=== PATIENT | female | born 1990 | race Caucasian/White ===

== ENCOUNTER 2023-08-31 18:38 | Inpatient (IN) ==
--- NOTE | 2023-08-31 19:08 | Emergency Department Note ---
Impression & Plan Nausea & vomiting, Weakness, Ovarian cystic mass, Anemia, Upper respiratory infection, viral, Metabolic acidosis ED Provider Note ED Provider Note NAME: CODI EVANS AGE:32 SEX: Female : 1990 ARRIVES VIA: private vehicle INFORMANT: Patient ED PROVIDER(s): Malu Lundy DO CHIEF COMPLAINT: Nausea and vomiting, weakness, fatigue HPI: This is a 32-year-old female presents emergency department due to concern for nausea and vomiting, weakness, and fatigue which have been evolving over the last 2 months. Patient states that she initially had nausea and vomiting she thought it was a "stomach flu" that was similar to what other family members that had. She states at that time she does not recall having diarrhea, fevers or chills. She states after the other family members were already improved, she found herself still having intermittent vomiting, decreased appetite, and eventually weight loss, weakness, and increased fatigue. She denies any recent new sick contacts or travel, no recent medication changes. She denies any blood in the emesis. She denies any history of stomach or intestinal problems. PAST MEDICAL HISTORY:See Below PAST SURGICAL HISTORY:See Below FAMILY HISTORY:See Below SOCIAL HISTORY:See Below HOME MEDICATIONS:See Below ALLERGIES:See Below VITALS:See Below PHYSICAL EXAMINATION: GENERAL: alert, well appearing, well nourished, no distress, non-toxic EYE EXAM: normal conjunctiva, PERRL and EOM's grossly intact OROPHARYNX: no exudate, no erythema, lips, buccal mucosa, and tongue normal and mucous membranes are moist NECK: supple, no nuchal rigidity, no adenopathy, non-tender LUNGS: Clear to auscultation. Normal chest wall mechanics, no w/r/r HEART: no murmurs, S1 normal and S2 normal ABDOMEN: abdomen soft, non-tender, normo-active bowel sounds, no masses, no rebound or guarding. BACK: Back is symmetrical on inspection and there is no deformity, no midline tenderness, no CVA tenderness. SKIN: no rashes, petechiae, orbruising UPPER EXTREMITIES: upper extremities are grossly normal. FROM, nml pulses b/l. LOWER EXTREMITIES: No pitting edema. FROM, nml pulses b/l. NEURO EXAM: Normal sensorium, cranial nerves II-XII grossly intact, normal speech, no facial droop,nogross weakness of arms, no gross weakness of legs. Gross sensation intact. No ataxia. Vital Signs: reviewed and remarkable Differential Diagnosis: dehydration, stroke, anemia, hypoglycemia, hyponatremia, hypernatremia, urinary tract infection, pneumonia, bronchitis, sepsis, gastroenteritis, DKA, electrolyte abnormalities, ARSEN, gastroparesis as well as others were considered MEDICAL DECISION MAKING: This is a 32-year-old female presents to the 2 months of worsening nausea and vomiting, weakness, and fatigue. Patient tachycardic however vital signs otherwise stable. She did appear clinically dehydrated on bedside exam. Labs drawn and sent, IV established, EKG performed at bedside interpreted by me and based on discussion of persistent GI symptoms she was sent for CT of the abdomen and pelvis. CT revealed large pelvic cystic mass likely ovarian in nature with both cystic and solid components. The patient does have a history of PCOS she states she had never had a prior pelvic ultrasound for evaluation of these. Patient's lab revealed significant leukocytosis of 23 as well as new anemia. Patient denies any vaginal bleeding, GI bleeding, or hemoptysis. Patient noted to have anion gap although no significant hyperglycemia. No evidence of ARSEN. After noting significant leukocytosis, lactic acid, procalcitonin, blood cultures were added. Patient denies any recent illness or fevers. Patient had no abdominal pain on exam. Patient had been started on normal saline at maintenance rate due to concern for occult dehydration. I suspect her dehydration could be contributing to her metabolic acidosis, however I also have concern for euglycemic DKA given her use of Jardiance. I did discuss the CT findings with [facility] [employer] SUPERVISOR on-call who stated there is no need for emergent intervention and that ultimately she would need referred to [facility]. I was called by radiology additionally who recommended additional imaging of the chest as they were concerned about possible PE noted on the abdominal CT. This was also [facility] of the chest. Patient's nasal swab was also positive for enterovirus/rhinovirus. Consultation(s): 2126: Discussed with Dr. Suggs, technical applications scientist. Will need referral ultimately to medical cost consultant onc for surgery. 2131: [facility] Treatment Provided: See below Diagnostics Interpreted By Me: -ECG: Sinus tachycardia at 147, normal axis, normal intervals, nonspecific ST/T wave changes -Cardiac Monitoring: An order was placed for continuous cardiac monitoring. The monitor shows a rate of 144 with sinus tachycardia rhythm. -Laboratory studies: As stated above and show below. -Imaging studies: [] Triage Nursing Note Reviewed Prior/Outside Records Reviewed -prior outpatient labs including hemoglobin A1c reviewed Past Med/Surg History Social History Smoking Status: Never smoker Hx Alcohol Use: No Hx Substance Use: No Preferred Language: Maltese Silk Screen Etcher Required: No Beliefs That Will Affect Care: None Current Living Situation: Alone Other Information That Helps Us Care for You: No Feels Safe at Home: Yes Safety Concerns: Feels Safe At This Time Assistive Devices: Glasses Allergies Allergies Allergy/AdvReac Type Severity Reaction Status Date / Time exenatide [From [facility]] Allergy Rash Verified 08/31/23 20:41 Home Meds Home Medications Medication Instructions Recorded Confirmed empagliflozin 25 mg tablet 25 mg PO DAILY 05/28/20 08/31/23 (Jardiance) losartan 25 mg tablet 25 mg PO DAILY 05/28/20 08/31/23 metformin 1,000 mg tablet 1,000 mg PO BID 05/28/20 08/31/23 escitalopram oxalate 10 mg tablet 10 mg PO QAM 08/31/23 08/31/23 Results & Data (ED) Vital Signs Vital Signs - 24 hr 08/31/23 18:42 08/31/23 19:01 08/31/23 19:05 Temperature 36.6 C Temperature Source Oral Pulse Rate 144 H 136 H Pulse Rhythm Regular Pulse Strength Normal Respiratory Rate 18 Respiratory Effort / Characteristics Non-Labored Respiratory Depth Normal Respiratory Pattern Regular Blood Pressure 136/86 Blood Pressure Mean 102 Blood Pressure Position Sitting Pulse Oximetry 98 Oxygen Delivery Method Room Air Room Air Oxygen Flow Rate 99 Sepsis Recent Fever Within 48 Hours No Sepsis New/Unexplained Change in Mental Status No Sepsis Action Taken by Nursing No Action Required 08/31/23 19:25 08/31/23 19:30 08/31/23 20:54 Temperature Temperature Source Pulse Rate 131 H 131 H 124 H Pulse Rhythm Pulse Strength Respiratory Rate 20 18 18 Respiratory Effort / Characteristics Respiratory Depth Respiratory Pattern Blood Pressure 122/82 127/85 118/82 Blood Pressure Mean 95 99 94 Blood Pressure Position Pulse Oximetry 98 98 99 Oxygen Delivery Method Oxygen Flow Rate Sepsis Recent Fever Within 48 Hours Sepsis New/Unexplained Change in Mental Status Sepsis Action Taken by Nursing 08/31/23 21:00 08/31/23 21:30 Temperature Temperature Source Pulse Rate 130 H 126 H Pulse Rhythm Pulse Strength Respiratory Rate 22 20 Respiratory Effort / Characteristics Respiratory Depth Respiratory Pattern Blood Pressure 142/93 H 135/87 Blood Pressure Mean 109 103 Blood Pressure Position Pulse Oximetry 97 98 Oxygen Delivery Method Oxygen Flow Rate Sepsis Recent Fever Within 48 Hours Sepsis New/Unexplained Change in Mental Status Sepsis Action Taken by Nursing Laboratory Data 08/31/23 19:01 09/01/23 00:45 Lab Results 08/31/23 08/31/23 08/31/23 Range/Units 19:01 : 20:25 WBC 23.73 H (4.8-10.8) K/ul RBC 3.99 L (4.20-5.40) M/uL Hgb 7.8 L (12.0-16.0) g/dl Hct 29.1 L (37.0-47.0) % MCV 72.9 L (80.0-100.0) fL MCH 19.5 L (25.0-34.0) pg MCHC 26.8 L (32.0-36.0) g/dL RDW Std Deviation 52.4 H (36.4-46.3) fL RDW Coeff of Maryuri 20.7 H (11.5-14.5) % Plt Count 735 H (130-400) K/uL MPV 8.4 L (9.4-12.4) fL Immature Gran % (Auto) 2.1 % Neut % (Auto) 81.0 % Lymph % (Auto) 11.0 % [place] % (Auto) 5.4 % Eos % (Auto) 0.2 % Baso % (Auto) 0.3 % Neut # (Auto) 19.22 H (1.40-6.50) K/uL Lymph # (Auto) 2.62 (1.20-3.40) K/uL [place] # (Auto) 1.28 H (0.11-0.59) K/uL Eos # (Auto) 0.04 (0.00-0.50) K/uL Baso # (Auto) 0.08 (0.00-0.20) K/uL Immature Gran # (Auto) 0.49 H (0.01-0.20) K/uL Polychromasia 1+ Hypochromasia Present Anisocytosis Present PT 11.9 (9.0-12.0) Seconds INR 1.1 (0.9-1.1) APTT 26 (21-31) Seconds PTT Ratio 0.9 Sodium 130 L (136-145) mmol/L Potassium TNP 3.7 Chloride 92 L (98-107) mmol/L Carbon Dioxide 21 (21-32) mmol/L Anion Gap 17 H (3-11) BUN 14 (6-23) mg/dl Creatinine 0.55 L (0.6-1.2) mg/dl Est Cr Clr Drug Dosing 163.6 ml/min Est GFR ( Amer) 144.9 ml/min Est GFR (Non-Af Amer) 125.0 ml/min BUN/Creatinine Ratio 25.5 H (10-20) Glucose 168 H (70-99(Fasting)) mg/dl Lactate 1.6 (0.4-2.0) mmol/L Calcium 9.3 (8.6-10.3) mg/dl Magnesium 1.9 (1.7-2.4) mg/dl Total Bilirubin 0.5 (0.2-1.0) mg/dl AST TNP 11 L ALT 6 L (7-52) U/L Alkaline Phosphatase 117 H (34-104) U/L Troponin I High Sens 11.5 (0-14) pg/ml Total Protein 8.4 H (6.0-8.3) gm/dl Albumin 3.5 (3.4-5.0) gm/dl Globulin 4.9 H (2.5-4.0) gm/dl Albumin/Globulin Ratio 0.7 L (0.9-2) Lipase 15 (11-82) U/L Procalcitonin 0.41 (0-0.5) ng/ml TSH 1.394 (0.300-4.500) uIu/ml HCG, Qual Negative (Negative) Blood Type Blood Type Recheck A Positive Antibody Screen 08/31/23 Range/Units 21:45 WBC (4.8-10.8) K/ul RBC (4.20-5.40) M/uL Hgb (12.0-16.0) g/dl Hct (37.0-47.0) % MCV (80.0-100.0) fL MCH (25.0-34.0) pg MCHC (32.0-36.0) g/dL RDW Std Deviation (36.4-46.3) fL RDW Coeff of Maryuri (11.5-14.5) % Plt Count (130-400) K/uL MPV (9.4-12.4) fL Immature Gran % (Auto) % Neut % (Auto) % Lymph % (Auto) % [place] % (Auto) % Eos % (Auto) % Baso % (Auto) % Neut # (Auto) (1.40-6.50) K/uL Lymph # (Auto) (1.20-3.40) K/uL [place] # (Auto) (0.11-0.59) K/uL Eos # (Auto) (0.00-0.50) K/uL Baso # (Auto) (0.00-0.20) K/uL Immature Gran # (Auto) (0.01-0.20) K/uL Polychromasia Hypochromasia Anisocytosis PT (9.0-12.0) Seconds INR (0.9-1.1) APTT (21-31) Seconds PTT Ratio Sodium (136-145) mmol/L Potassium Chloride (98-107) mmol/L Carbon Dioxide (21-32) mmol/L Anion Gap (3-11) BUN (6-23) mg/dl Creatinine (0.6-1.2) mg/dl Est Cr Clr Drug Dosing ml/min Est GFR ( Amer) ml/min Est GFR (Non-Af Amer) ml/min BUN/Creatinine Ratio (10-20) Glucose (70-99(Fasting)) mg/dl Lactate (0.4-2.0) mmol/L Calcium (8.6-10.3) mg/dl Magnesium (1.7-2.4) mg/dl Total Bilirubin (0.2-1.0) mg/dl AST ALT (7-52) U/L Alkaline Phosphatase (34-104) U/L Troponin I High Sens (0-14) pg/ml Total Protein (6.0-8.3) gm/dl Albumin (3.4-5.0) gm/dl Globulin (2.5-4.0) gm/dl Albumin/Globulin Ratio (0.9-2) Lipase (11-82) U/L Procalcitonin (0-0.5) ng/ml TSH (0.300-4.500) uIu/ml HCG, Qual (Negative) Blood Type A Positive Blood Type Recheck Antibody Screen NEGATIVE Administered Medications Heparin Sodium/Dextrose (Heparin Sodium/Dextrose) 25,000 units in 500 mls @ 25 mls/hr IV .Q20H DEMAR; Protocol Stop: 10/01/23 00:29 Last Admin: 09/01/23 00:52 Dose: 1,250 units/hr, 25 mls/hr Documented By: LUPE Co-signed By: MARYA Sodium Chloride (Nss) 1,000 mls @ 999 mls/hr IV .Q1H1M STA Stop: 09/01/23 03:06 Last Admin: 09/01/23 02:08 Dose: 999 mls/hr Documented By: MARTHA Discontinued Medications Heparin Sodium (Porcine) (Heparin Sod (Porcine) 1000 Unit/Ml) 6,000 units IV NOW ONE Stop: 09/01/23 00:31 Last Admin: 09/01/23 00:55 Dose: 6,000 units Documented By: LUPE Co-signed By: MARYA Heparin Sodium/Dextrose (Heparin Iv Adult Wt-Based Standard W/ Initial Bolus Protocol) 1 each IV NOW STA; Protocol Stop: 08/31/23 23:20 Last Admin: 09/01/23 00:55 Dose: 1 each Documented By: LUPE Sodium Chloride (Nss) 1,000 mls @ 125 mls/hr IV .Q8H DEMAR Stop: 09/30/23 19:14 Last Infusion: 09/01/23 01:48 Dose: Infused Documented By: Admin: 08/31/23 19:25 Dose: 125 mls/hr Documented By: LUPE Dextrose/Sodium Chloride (D5w And Nss) 1,000 mls @ 200 mls/hr IV .Q5H DEMAR Stop: 10/01/23 01:44 Last Infusion: 09/01/23 02:04 Dose: Infused Documented By: Admin: 09/01/23 01:57 Dose: 200 mls/hr Documented By: MARTHA Ioversol (Optiray 320 500ml) 90 ml IV ONCE ONE Stop: 08/31/23 19:54 Last Admin: 08/31/23 19:53 Dose: 90 ml Documented By: ALEJANDRO Ioversol (Optiray 320 125ml) 117 ml IV ONCE ONE Stop: 08/31/23 22:31 Last Admin: 08/31/23 22:31 Dose: 117 ml Documented By: ALEJANDRO Imaging Data Radiologist's Impression: Abdomen/Pelvis CT 08/31/23 19:03 Exam(s): CT ABDOMEN + PELVIS With Contrast IV Amt: 90 ml optiray 320 EXAM: CT Abdomen and Pelvis With Intravenous Contrast CLINICAL HISTORY: n/v, weight loss, abd distention. TECHNIQUE: Axial computed tomography images of the abdomen and pelvis with intravenous contrast. CTDI is 28.22 mGy and DLP is 1419.52 mGy-cm. Automated exposure control was utilized for the study. A dose lowering technique was utilized adhering to the principles of ALARA. CONTRAST: Patient received 90 ml optiray 320 of IV contrast COMPARISON: No relevant prior studies available. FINDINGS: Lung bases: Unremarkable. No mass. No consolidation. ABDOMEN: Liver: Unremarkable. No mass. Gallbladder and bile ducts: Unremarkable. No calcified stones. No ductal dilation. Pancreas: Unremarkable. No mass. No ductal dilation. Spleen: Unremarkable. No splenomegaly. Adrenals: Unremarkable. No mass. Kidneys and ureters: Unremarkable. No solid mass. No hydronephrosis. Stomach and bowel: No evidence for bowel obstruction. There is marked displacement of the bowel from the abnormal space-occupying mass. No asymmetric bowel mucosal abnormality identified. PELVIS: Appendix: The appendix is not clearly delineated. No secondary findings identified. Bladder: Unremarkable. No mass. Reproductive: Uterus is normal in size and appears to be distinct from the pelvic mass. There is tissue in the right lateral pelvis which may represent the right adnexa/ovary. The tissue abuts the mass but appears to be somewhat distinct from the mass. ABDOMEN and PELVIS: Intraperitoneal space: There is a complex probably cystic mass with eccentric solid components filling and distending the abdomen and pelvis, measuring 20.2 x 28 x 28.4 cm (volume 8.42 L). Trace free fluid in the pelvis without loculation. No free air. Bones/joints: No acute fracture. No dislocation. Soft tissues: Unremarkable. Vasculature: Unremarkable. No abdominal aortic aneurysm. Lymph nodes: Unremarkable. No enlarged lymph nodes. IMPRESSION: There is a complex probably cystic mass with eccentric solid components filling and distending the abdomen and pelvis, measuring 20.2 x 28 x 28.4 cm (volume 8.42 L). Trace surrounding free fluid in the pelvis. 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 Electronically signed by: Amadeo Cheema MD 08/31/23 20:47 PM Chest CTA 08/31/23 22:07 CT ANGIOGRAM OF THE CHEST CLINICAL HISTORY: Ovarian mass. Possible left lower lobe pulmonary embolus. COMPARISON STUDY: Abdominal CT performed the same date 08/31/2023. TECHNIQUE: Following the IV administration of 117 cc of Optiray 320, CT angiogram of the chest was performed from the upper abdomen to the thoracic inlet utilizing the pulmonary embolus protocol. Images are reviewed in the axial, sagittal, and coronal planes. 3-D MIPS images are created and assessed. IV contrast was administered without complication. A dose lowering technique was utilized adhering to the principles of ALARA. CT DOSE: 849.54 mGy.cm FINDINGS: Thyroid: Imaged portions of the thyroid gland are normal in size and attenuation. Thoracic aorta: The thoracic aorta is normal in caliber and demonstrates bovine variant arch anatomy. No dissection is seen. Pulmonary vasculature: The pulmonary trunk is normal in caliber. There are segmental and subsegmental pulmonary embolus within branches of the left lower lobe pulmonary artery. The remaining pulmonary vessels appear clear. Heart: The heart is normal in size and without pericardial effusion. Lungs and pleural spaces: Evaluation of the lung parenchyma is degraded by motion artifact. There is trace right pleural effusion and dependent atelectasis. No airspace consolidation is seen typical for pneumonia. The trachea and central airways are clear. Mediastinum: There is no mediastinal lymphadenopathy. Denae: Clear. Axillae: There is no axillary lymphadenopathy. Upper abdomen: A large solid and cystic mass lesion is partially visualized in the upper abdomen below the diaphragm. Excreted IV contrast is seen within the renal collecting systems. Skeletal structures: No lytic or blastic bony lesions are seen. IMPRESSION: 1. The CT angiogram confirms pulmonary embolus within segmental and subsegmental branches of the left lower lobe pulmonary artery. 2. Trace right pleural effusion. 3. There is no airspace consolidation typical for pneumonia. 4. There is no evidence of intrathoracic metastatic disease. 5. A large solid and cystic ovarian mass lesion is partially visualized in the upper abdomen. An ovarian neoplasm remains the diagnosis of exclusion. 6. Additional findings as above. ACT 112: Negative or not required by law. Electronically signed by: Damien Rolle M.D. 08/31/2023 10:45 PM Discharge Plan Visit Data Chief Complaint: Shortness of Breath/Dyspnea Stated Complaint: VOMIT, SOB, DIZZY ED Provider: Malu Lundy Discharge Problem: Nausea & vomiting, Weakness, Ovarian cystic mass, Anemia, Upper respiratory infection, viral, Metabolic acidosis Patient Disposition: Admitted As Inpatient Discharge Instructions Interventions: ED Discharge Assessment Last Done: 09/01/23 00:12
[2023-08-31] MEDS ORDERED: SODIUM CHLORIDE 0.9% 1,000 ML IV SCH (19:15)
[2023-08-31 19:37] LABS: Alanine Aminotransferase 6 U/L (7-52); Albumin Globulin Ratio 0.7 (0.9-2); Albumin Level 3.5 gm/dl (3.4-5.0); Alkaline Phosphatase 117 U/L (34-104); Anion Gap 17 (3-11); BUN Creatinine Ratio 25.5 (10-20); Bilirubin,Total 0.5 mg/dl (0.2-1.0); Blood Urea Nitrogen 14 mg/dl (6-23); Calcium 9.3 mg/dl (8.6-10.3); Carbon Dioxide 21 mmol/L (21-32); Chloride 92 mmol/L (98-107); Creatinine Clr Calc Pharmacy 163.6 ml/min; Est GFR (African American) 144.9 ml/min; Globulin 4.9 gm/dl (2.5-4.0); Glucose 168 mg/dl (70-99(Fasting)); Lipase 15 U/L (11-82); Magnesium 1.9 mg/dl (1.7-2.4); Sodium 130 mmol/L (136-145); Total Protein 8.4 gm/dl (6.0-8.3)
[2023-08-31 19:38] LABS: Hematocrit (blood only) 29.1 % (37.0-47.0); Hemoglobin 7.8 g/dl (12.0-16.0); Mean Corpuscular Hemoglobin 19.5 pg (25.0-34.0); Mean Corpuscular Hgb Conc 26.8 g/dL (32.0-36.0); Mean Corpuscular Volume 72.9 fL (80.0-100.0); Mean Platelet Volume 8.4 fL (9.4-12.4); Platelet Count 735 K/uL (130-400); RDW Coefficient of Variation 20.7 % (11.5-14.5); RDW Standard Deviation 52.4 fL (36.4-46.3); Red Blood Count 3.99 M/uL (4.20-5.40); White Blood Count 23.73 K/ul (4.8-10.8)
[2023-08-31 19:39] LABS: Anisocytosis Present; Basophils # (auto) 0.08 K/uL (0.00-0.20); Basophils % (auto) 0.3 %; Eosinophils # (auto) 0.04 K/uL (0.00-0.50); Eosinophils % (auto) 0.2 %; Hypochromasia Present; Immature Granulocytes # (auto) 0.49 K/uL (0.01-0.20); Immature Granulocytes % (auto) 2.1 %; Lymphocytes # (auto) 2.62 K/uL (1.20-3.40); Monocytes # (auto) 1.28 K/uL (0.11-0.59); Monocytes % (auto) 5.4 %; Neutrophils # (auto) 19.22 K/uL (1.40-6.50); Polychromasia 1+
[2023-08-31 19:40] LABS: INR 1.1 (0.9-1.1); Prothrombin Time 11.9 Seconds (9.0-12.0); Troponin I High Sensitivity 11.5 pg/ml (0-14)
[2023-08-31 19:49] LABS: Thyroid Stimulating Hormone 1.394 uIu/ml (0.300-4.500)
[2023-08-31] MEDS ORDERED: OPTIRAY 320 500ml IV ONE (19:53)
--- NOTE | 2023-08-31 20:48 | CT Scan Report ---
Exam(s): CT ABDOMEN + PELVIS With Contrast IV Amt: 90 ml optiray 320 EXAM: CT Abdomen and Pelvis With Intravenous Contrast CLINICAL HISTORY: n/v, weight loss, abd distention. TECHNIQUE: Axial computed tomography images of the abdomen and pelvis with intravenous contrast. CTDI is 28.22 mGy and DLP is 1419.52 mGy-cm. Automated exposure control was utilized for the study. A dose lowering technique was utilized adhering to the principles of ALARA. CONTRAST: Patient received 90 ml optiray 320 of IV contrast COMPARISON: No relevant prior studies available. FINDINGS: Lung bases: Unremarkable. No mass. No consolidation. ABDOMEN: Liver: Unremarkable. No mass. Gallbladder and bile ducts: Unremarkable. No calcified stones. No ductal dilation. Pancreas: Unremarkable. No mass. No ductal dilation. Spleen: Unremarkable. No splenomegaly. Adrenals: Unremarkable. No mass. Kidneys and ureters: Unremarkable. No solid mass. No hydronephrosis. Stomach and bowel: No evidence for bowel obstruction. There is marked displacement of the bowel from the abnormal space-occupying mass. No asymmetric bowel mucosal abnormality identified. PELVIS: Appendix: The appendix is not clearly delineated. No secondary findings identified. Bladder: Unremarkable. No mass. Reproductive: Uterus is normal in size and appears to be distinct from the pelvic mass. There is tissue in the right lateral pelvis which may represent the right adnexa/ovary. The tissue abuts the mass but appears to be somewhat distinct from the mass. ABDOMEN and PELVIS: Intraperitoneal space: There is a complex probably cystic mass with eccentric solid components filling and distending the abdomen and pelvis, measuring 20.2 x 28 x 28.4 cm (volume 8.42 L). Trace free fluid in the pelvis without loculation. No free air. Bones/joints: No acute fracture. No dislocation. Soft tissues: Unremarkable. Vasculature: Unremarkable. No abdominal aortic aneurysm. Lymph nodes: Unremarkable. No enlarged lymph nodes. IMPRESSION: There is a complex probably cystic mass with eccentric solid components filling and distending the abdomen and pelvis, measuring 20.2 x 28 x 28.4 cm (volume 8.42 L). Trace surrounding free fluid in the pelvis. 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 Electronically signed by: Amadeo Cheema MD 08/31/23 20:47 PM
[2023-08-31 20:52] LABS: Potassium 3.7 mmol/L (3.5-5.1)
[2023-08-31 21:10] LABS: Adenovirus PCR Not Detected (NotDetected); Bordetella parapertussis PCR Not Detected (NotDetected); Bordetella pertussis PCR Not Detected (NotDetected); Chlamydia pneumoniae PCR Not Detected (NotDetected); Coronavirus 229E PCR Not Detected (NotDetected); Coronavirus CoV-2 (COVID19)PCR Not Detected (NotDetected); Coronavirus HKU1 PCR Not Detected (NotDetected); Coronavirus NL63 PCR Not Detected (NotDetected); Coronavirus OC43PCR Not Detected (NotDetected); Human Metapneumovirus PCR Not Detected (NotDetected); Influenza A PCR Not Detected (NotDetected); Influenza B PCR Not Detected (NotDetected); Mycoplasma pneumoniae PCR Not Detected (NotDetected); Parainfluenza Virus 1 PCR Not Detected (NotDetected); Parainfluenza Virus 2 PCR Not Detected (NotDetected); Parainfluenza Virus 3 PCR Not Detected (NotDetected); Parainfluenza Virus 4 PCR Not Detected (NotDetected); Respiratory Syncytial VirusPCR Not Detected (NotDetected)
[2023-08-31 21:12] LABS: Rhinovirus/Enterovirus PCR DETECTED (NotDetected)
[2023-08-31 21:46] LABS: Pregnancy Test, Serum Negative (Negative)
[2023-08-31] MEDS ORDERED: OPTIRAY 320 125ml IV ONE (22:30)
--- NOTE | 2023-08-31 22:43 | History & Physical Report ---
Date of Service August 31, 2023 Assessment & Plan (1) Weakness: Plan: 32-year-old female with past med significant for type 2 diabetes, polycystic ovaries, morbid obesity comes because of ongoing nausea and vomiting, weakness and fatigue for last 2 months. She vomits little bit about every other day .She was getting progressively short of breath. Fatigue and weak. Poor appetite. Last about 40 pounds in last 2 months. Denies any fevers. On and off pal pitations. No chest pain. And found to have tachycardia, leukocytosis, anemia and respiratory bio fire came back positive for enterorhinovirus and CT scan showing large oral mass. Weakness Enterorhinovirus Anemia Large ovarian mass Tachycardia Ct chest showing PE started on iv heparin ordered echo and lower extremity doppler. Entero/rhinovirus Supportive care Droplet precautions Seems asymptomatic from the virus infection Anemia Hemoglobin 7.8 No obvious signs of bleeding Will follow stool for Hemoccult Iron studies and vitamin B12 folate levels Follow labs closely while on iv heparin Blood consent obtained Leukocytosis We will follow UA and CT chest Procalcitonin negative We will follow labs will follow cultures follow mrsa screen. empiric zosyn Large ovarian mass CT abdominal /pelvis:There is a complex probably cystic mass with eccentric solid components filling and distending the abdomen and pelvis, measuring 20.2 x 28 x 28.4 cm (volume 8.42 L). Trace surrounding free fluid in the pelvis. 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 Will consult [facility] Diabetes possible euglycemic DKA as patient on Jardiance and having poor oral intake having high anion gap not much improved with fluids started on insulin drip with fluids d5ns@200ml/hr close monitor labs glycemic pharmacy consulted. History of polycystic ovaries Hypertension On losartan will monitor. Morbid obesity DVT prophylaxis iv heparin Disposition Telemetry floor Full code History of Present Illness Chief Complaint: Shortness of breath, fatigue Primary Care Provider: Clemencia Diana DO 32-year-old female with past med significant for type 2 diabetes, polycystic ovaries, morbid obesity comes because of ongoing nausea and vomiting, weakness and fatigue for last 2 months. She vomits little bit about every other day .She was getting progressively short of breath. Fatigue and weak. Poor appetite. Last about 40 pounds in last 2 months. Denies any fevers. On and off palpitations. No chest pain. No headache. Currently denies any runny nose or sore throat. Has cough for last 4 months. On and off bilateral flank pains. Denies hematuria or blood in the stools. Denies any heavy menses. She also feeling weak in the legs. Not able to ambulate much. Past medical history. As mentioned above Past surgical history. None Social history. Currently living with her sister and family. No smoking. No alcohol use. No drug use. Family history. Mother had hypertension. COPD, obesity. Father had glaucoma, hypertension. Sister has obesity, hypertension. Maternal grandfather had polycythemia. Paternal grandfather had cancer. Paternal grandmother had lung cancer. Allergies Allergy/AdvReac Type Severity Reaction Status Date / Time exenatide [From MapHazardlyAcsis] Allergy Rash Verified 08/31/23 20:41 Home Medications Medication Instructions Recorded Confirmed Type empagliflozin 25 mg tablet 25 mg PO DAILY 05/28/20 08/31/23 History (Jardiance) losartan 25 mg tablet 25 mg PO DAILY 05/28/20 08/31/23 History metformin 1,000 mg tablet 1,000 mg PO BID 05/28/20 08/31/23 History escitalopram oxalate 10 mg tablet 10 mg PO QAM 08/31/23 08/31/23 History Past Med/Surg History Social History Smoking Status: Never smoker Hx Alcohol Use: No Hx Substance Use: No Preferred Language: [place] Clinical Psychiatrist Required: No Beliefs That Will Affect Care: None Current Living Situation: Alone Other Information That Helps Us Care for You: No Feels Safe at Home: Yes Safety Concerns: Feels Safe At This Time Assistive Devices: Glasses Review of Systems Review of Systems: All systems reviewed & are unremarkable except as noted in HPI & below Physical Exam Physical Exam: General-Not in distress. Head- atraumatic Eyes- PERRL. ENT- oropharynx clear Neck- supple, no JVD. Lungs- clear to auscultation no wheezing or crackles. Heart- regular rhythm; no murmur, no gallop. Abdomen- normal bowel sounds, soft, nontender, no distension. Extremities- no pretibial edema, no erythema seen. Neuro- alert, oriented x 3; PERRL,; no facial palsy; no dysarthria; obeys commands. Skin- warm & dry Results & Data Results & Data Vital Signs (Past 12 Hours) Vital Signs Temp Pulse Resp BP Pulse Ox O2 Del Method O2 Flow Rate 08/31/23 20:54 124 H 18 118/82 99 08/31/23 19:30 131 H 18 127/85 98 08/31/23 19:25 131 H 20 122/82 98 08/31/23 19:05 Room Air 99 08/31/23 19:01 136 H 08/31/23 18:42 36.6 C 144 H 18 136/86 98 Room Air Diagnostic Findings Laboratory Results WBC 23.73 K/ul (4.8-10.8) H 08/31/23 19:01 RBC 3.99 M/uL (4.20-5.40) L 08/31/23 19:01 Hgb 7.8 g/dl (12.0-16.0) L 08/31/23 19:01 Hct 29.1 % (37.0-47.0) L 08/31/23 19:01 MCV 72.9 fL (80.0-100.0) L 08/31/23 19:01 MCH 19.5 pg (25.0-34.0) L 08/31/23 19:01 MCHC 26.8 g/dL (32.0-36.0) L 08/31/23 19:01 RDW Std Deviation 52.4 fL (36.4-46.3) H 08/31/23 19:01 RDW Coeff of Maryuri 20.7 % (11.5-14.5) H 08/31/23 19:01 Plt Count 735 K/uL (130-400) H 08/31/23 19:01 MPV 8.4 fL (9.4-12.4) L 08/31/23 19:01 Immature Gran % (Auto) 2.1 % 08/31/23 19:01 Neut % (Auto) 81.0 % 08/31/23 19:01 Lymph % (Auto) 11.0 % 08/31/23 19:01 [place] % (Auto) 5.4 % 08/31/23 19:01 Eos % (Auto) 0.2 % 08/31/23 19:01 Baso % (Auto) 0.3 % 08/31/23 19:01 Neut # (Auto) 19.22 K/uL (1.40-6.50) H 08/31/23 19:01 Lymph # (Auto) 2.62 K/uL (1.20-3.40) 08/31/23 19:01 [place] # (Auto) 1.28 K/uL (0.11-0.59) H 08/31/23 19:01 Eos # (Auto) 0.04 K/uL (0.00-0.50) 08/31/23 19:01 Baso # (Auto) 0.08 K/uL (0.00-0.20) 08/31/23 19:01 Immature Gran # (Auto) 0.49 K/uL (0.01-0.20) H 08/31/23 19:01 Polychromasia 1+ 08/31/23 19:01 Hypochromasia Present 08/31/23 19:01 Anisocytosis Present 08/31/23 19:01 PT 11.9 Seconds (9.0-12.0) 08/31/23 19:01 INR 1.1 (0.9-1.1) 08/31/23 19:01 Sodium 130 mmol/L (136-145) L 08/31/23 19:01 Potassium 3.7 mmol/L (3.5-5.1) 08/31/23 20:23 Chloride 92 mmol/L (98-107) L 08/31/23 19:01 Carbon Dioxide 21 mmol/L (21-32) 08/31/23 19:01 Anion Gap 17 (3-11) H 08/31/23 19:01 BUN 14 mg/dl (6-23) 08/31/23 19:01 Creatinine 0.55 mg/dl (0.6-1.2) L 08/31/23 19:01 Est Cr Clr Drug Dosing 163.6 ml/min 08/31/23 19:01 Est GFR ( Amer) 144.9 ml/min 08/31/23 19:01 Est GFR (Non-Af Amer) 125.0 ml/min 08/31/23 19:01 BUN/Creatinine Ratio 25.5 (10-20) H 08/31/23 19:01 Glucose 168 mg/dl (70-99(Fasting)) H 08/31/23 19:01 Lactate 1.6 mmol/L (0.4-2.0) 08/31/23 20:23 Calcium 9.3 mg/dl (8.6-10.3) 08/31/23 19: Magnesium 1.9 mg/dl (1.7-2.4) 08/31/23 19: Total Bilirubin 0.5 mg/dl (0.2-1.0) 08/31/23 19:01 AST 11 U/L (13-39) L 08/31/23 20:23 ALT 6 U/L (7-52) L 08/31/23 19:01 Alkaline Phosphatase 117 U/L (34-104) H 08/31/23 19:01 Troponin I High Sens 11.5 pg/ml (0-14) 08/31/23 19: Total Protein 8.4 gm/dl (6.0-8.3) H 08/31/23 19: Albumin 3.5 gm/dl (3.4-5.0) 08/31/23 19: Globulin 4.9 gm/dl (2.5-4.0) H 08/31/23 19: Albumin/Globulin Ratio 0.7 (0.9-2) L 08/31/23 19: Lipase 15 U/L (11-82) 08/31/23 19:01 Procalcitonin 0.41 ng/ml (0-0.5) 08/31/23 20: TSH 1.394 uIu/ml (0.300-4.500) 08/31/23 19: HCG, Qual Negative (Negative) 08/31/23 20:23 Adenovirus (PCR) Not Detected (NotDetected) 08/31/23 Unknown B. pertussis DNA (PCR) Not Detected (NotDetected) 08/31/23 Unknown B.parapertussis DNA PCR Not Detected (NotDetected) 08/31/23 Unknown C. pneumoniae DNA (PCR) Not Detected (NotDetected) 08/31/23 Unknown Coronavirus OC43 (PCR) Not Detected (NotDetected) 08/31/23 Unknown Coronavirus HKU1 (PCR) Not Detected (NotDetected) 08/31/23 Unknown Coronavirus 229E (PCR) Not Detected (NotDetected) 08/31/23 Unknown SARS-CoV-2 (PCR) Not Detected (NotDetected) 08/31/23 Unknown Coronavirus NL63 (PCR) Not Detected (NotDetected) 08/31/23 Unknown Human Metapneumovir PCR Not Detected (NotDetected) 08/31/23 Unknown Influenza Type A (PCR) Not Detected (NotDetected) 08/31/23 Unknown Influenza Type B (PCR) Not Detected (NotDetected) 08/31/23 Unknown M. pneumoniae (PCR) Not Detected (NotDetected) 08/31/23 Unknown Parainfluenza 1 (PCR) Not Detected (NotDetected) 08/31/23 Unknown Parainfluenza 2 (PCR) Not Detected (NotDetected) 08/31/23 Unknown Parainfluenza 3 (PCR) Not Detected (NotDetected) 08/31/23 Unknown Parainfluenza 4 (PCR) Not Detected (NotDetected) 08/31/23 Unknown RSV (PCR) Not Detected (NotDetected) 08/31/23 Unknown Entero/Rhino (PCR) DETECTED (NotDetected) A* 08/31/23 Unknown Blood Type A Positive 08/31/23 21:45 Blood Type Recheck A Positive 08/31/23 20:25 Antibody Screen NEGATIVE 08/31/23 21:45 Impressions Abdomen/Pelvis CT 08/31/23 19:03 Exam(s): CT ABDOMEN + PELVIS With Contrast IV Amt: 90 ml optiray 320 EXAM: CT Abdomen and Pelvis With Intravenous Contrast CLINICAL HISTORY: n/v, weight loss, abd distention. TECHNIQUE: Axial computed tomography images of the abdomen and pelvis with intravenous contrast. CTDI is 28.22 mGy and DLP is 1419.52 mGy-cm. Automated exposure control was utilized for the study. A dose lowering technique was utilized adhering to the principles of ALARA. CONTRAST: Patient received 90 ml optiray 320 of IV contrast COMPARISON: No relevant prior studies available. FINDINGS: Lung bases: Unremarkable. No mass. No consolidation. ABDOMEN: Liver: Unremarkable. No mass. Gallbladder and bile ducts: Unremarkable. No calcified stones. No ductal dilation. Pancreas: Unremarkable. No mass. No ductal dilation. Spleen: Unremarkable. No splenomegaly. Adrenals: Unremarkable. No mass. Kidneys and ureters: Unremarkable. No solid mass. No hydronephrosis. Stomach and bowel: No evidence for bowel obstruction. There is marked displacement of the bowel from the abnormal space-occupying mass. No asymmetric bowel mucosal abnormality identified. PELVIS: Appendix: The appendix is not clearly delineated. No secondary findings identified. Bladder: Unremarkable. No mass. Reproductive: Uterus is normal in size and appears to be distinct from the pelvic mass. There is tissue in the right lateral pelvis which may represent the right adnexa/ovary. The tissue abuts the mass but appears to be somewhat distinct from the mass. ABDOMEN and PELVIS: Intraperitoneal space: There is a complex probably cystic mass with eccentric solid components filling and distending the abdomen and pelvis, measuring 20.2 x 28 x 28.4 cm (volume 8.42 L). Trace free fluid in the pelvis without loculation. No free air. Bones/joints: No acute fracture. No dislocation. Soft tissues: Unremarkable. Vasculature: Unremarkable. No abdominal aortic aneurysm. Lymph nodes: Unremarkable. No enlarged lymph nodes. IMPRESSION: There is a complex probably cystic mass with eccentric solid components filling and distending the abdomen and pelvis, measuring 20.2 x 28 x 28.4 cm (volume 8.42 L). Trace surrounding free fluid in the pelvis. 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 Electronically signed by: Amadeo Cheema MD 08/31/23 20:47 PM ECG Additional Comments: ECG. Sinus tachycardia rate of 147. No acute ST changes seen Code Status & VTE Plan VTE Prophylaxis Plan VTE Prophylaxis will be ordered: Yes
--- NOTE | 2023-08-31 22:47 | CT Scan Report ---
CT ANGIOGRAM OF THE CHEST CLINICAL HISTORY: Ovarian mass. Possible left lower lobe pulmonary embolus. COMPARISON STUDY: Abdominal CT performed the same date 08/31/2023. TECHNIQUE: Following the IV administration of 117 cc of Optiray 320, CT angiogram of the chest was pe rformed from the upper abdomen to the thoracic inlet utilizing the pulmonary embolus protocol. Images are reviewed in the axial, sagittal, and coronal planes. 3-D MIPS images are created and assessed. I V contrast was administered without complication. A dose lowering technique was utilized adhering to the principles of ALARA. CT DOSE: 849.54 mGy.cm FINDINGS: Thyroid: Imaged portions of the thyroid gland are normal in size and attenuation. Thoracic aorta: The thoracic aorta is normal in caliber and demonstrates bovine variant arch anatomy. No dissection is seen. Pulmonary vasculature: The pulmonary trunk is normal in caliber. There are segmental and subsegmental pulmonary embolus within branches of the left lower lobe pulmonary artery. The remaining pulmonary v essels appear clear. Heart: The heart is normal in size and without pericardial effusion. Lungs and pleural spaces: Evaluation of the lung parenchyma is degraded by motion artifact. There is trace right pleural effusion and dependent atelectasis. No airspace consolidation is seen typical for pneumonia. The trachea and central airways are clear. Mediastinum: There is no mediastinal lymphadenopathy. Denae: Clear. Axillae: There is no axillary lymphadenopathy. Upper abdomen: A large solid and cystic mass lesion is partially visualized in the upper abdomen belo w the diaphragm. Excreted IV contrast is seen within the renal collecting systems. Skeletal structures: No lytic or blastic bony lesions are seen. IMPRESSION: 1. The CT angiogram confirms pulmonary embolus within segmental and subsegmental branches of the left lower lobe pulmonary artery. 2. Trace right pleural effusion. 3. There is no airspace consolidation typical for pneumonia. 4. There is no evidence of intrathoracic metastatic disease. 5. A large solid and cystic ovarian mass lesion is partially visualized in the upper abdomen. An ovar kelley neoplasm remains the diagnosis of exclusion. 6. Additional findings as above. ACT 112: Negative or not required by law. Electronically signed by: Damien Rolle M.D. 08/31/2023 10:45 PM
[2023-08-31] MEDS ORDERED: Heparin IV Adult Wt-Based Standard w/ INITIAL Bolus Protocol IV STA (23:19)
[2023-08-31 23:40] LABS: Partial Thromboplastin Ratio 0.9; Partial Thromboplastin Time 26 Seconds (21-31)
[2023-09-01] MEDS ORDERED: HEPARIN SOD (PORCINE) 1000 UNIT/ML IV ONE (00:30)
[2023-09-01] MEDS: HEPARIN SODIUM/DEXTROSE 25,000 UNITS/500 ML BAG IV SCH ×2 (00:52→20:26)
[2023-09-01 01:00] LABS: Base Excess VBG -4.8 mEq/L; HCO3 VBG 20 mmol/L; Oxygen Saturation VBG 67.2 %; PCO2 VBG 34 mmHg (38-50); PO2 VBG 41 mmHg; pH VBG 7.37 (7.36-7.41)
[2023-09-01 01:16] LABS: Appearance Urine Clear (Clear); Bacteria Urine Automated Negative (Negative); Bilirubin Urine Negative (Negative); Blood Urine Negative (Negative); Color Urine Yellow; Epithelial Cell Urine Auto >30 /lpf (0-5); Glucose Urine UA 3+ (Negative); Ketones Urine 4+ (Negative); Leukocyte Esterase Urine Negative (Negative); Nitrite Urine Negative (Negative); Protein Urine 3+ (Negative); RBC Urine Automated 0-4 /hpf (0-4); Specific Gravity Urine > 1.045 (1.000-1.030); Urobilinogen Urine Negative (Negative)
[2023-09-01 01:19] LABS: Anion Gap 18 (3-11); BUN Creatinine Ratio 28.9 (10-20); Blood Urea Nitrogen 13 mg/dl (6-23); Calcium 8.8 mg/dl (8.6-10.3); Carbon Dioxide 19 mmol/L (21-32); Chloride 94 mmol/L (98-107); Est GFR (African American) > 150.0 ml/min; Est GFR (Non-African American) 133.5 ml/min; Glucose 125 mg/dl (70-99(Fasting)); Sodium 131 mmol/L (136-145)
[2023-09-01] MEDS ORDERED: D5W AND NSS 1,000 ML IV SCH (01:45)
[2023-09-01] MEDS ORDERED: SODIUM CHLORIDE 0.9% 1,000 ML IV STA (02:06)
[2023-09-01] MEDS ORDERED: GLUCOSE 10 TAB/TUBE PO PRN (02:12)
[2023-09-01] MEDS ORDERED: ACETAMINOPHEN 325 MG TAB PO PRN (02:12)
[2023-09-01] MEDS ORDERED: CARBOHYDRATES FOR HYPOGLYCEMIA PO PRN (02:12)
[2023-09-01] MEDS ORDERED: GLUCOSE 40% GEL 15 GM TUBE PO PRN (02:12)
[2023-09-01] MEDS ORDERED: NITROGLYCERIN SL 0.4 MG/TAB TAB SL PRN (02:12)
[2023-09-01] MEDS ORDERED: GLUCAGON FOR INJ 1 MG VIAL SQ PRN (02:12)
[2023-09-01] MEDS ORDERED: DEXTROSE 50% 50 ML SYRINGE IV PRN (02:12)
[2023-09-01] MEDS ORDERED: SODIUM CHLORIDE 0.9% 1,000 ML IV SCH (03:15)
[2023-09-01 04:35] LABS: Anion Gap 16 (3-11); BUN Creatinine Ratio 22.9 (10-20); Blood Urea Nitrogen 11 mg/dl (6-23); Calcium 8.6 mg/dl (8.6-10.3); Carbon Dioxide 19 mmol/L (21-32); Chloride 97 mmol/L (98-107); Creatinine Clr Calc Pharmacy 187.5 ml/min; Est GFR (African American) > 150.0 ml/min; Est GFR (Non-African American) 130.7 ml/min; Glucose 124 mg/dl (70-99(Fasting)); Iron 22 mcg/dl (35-150); Magnesium 1.9 mg/dl (1.7-2.4); Potassium 4.4 mmol/L (3.5-5.1); Sodium 132 mmol/L (136-145); Total Iron Binding Cap Calc 197 mcg/dl (250-450); Transferrin (FE) Percent Satur 11 % (15-50); Unsaturated Iron Binding Cap 175 mcg/dl (155-355)
[2023-09-01 04:59] LABS: Anisocytosis Present; Basophils # (auto) 0.09 K/uL (0.00-0.20); Basophils % (auto) 0.4 %; Eosinophils # (auto) 0.04 K/uL (0.00-0.50); Eosinophils % (auto) 0.2 %; Hematocrit (blood only) 26.5 % (37.0-47.0); Hypochromasia Present; Immature Granulocytes # (auto) 0.51 K/uL (0.01-0.20); Immature Granulocytes % (auto) 2.2 %; Lymphocytes # (auto) 3.03 K/uL (1.20-3.40); Lymphocytes % (auto) 13.1 %; Mean Corpuscular Hemoglobin 19.4 pg (25.0-34.0); Mean Corpuscular Hgb Conc 26.4 g/dL (32.0-36.0); Mean Corpuscular Volume 73.4 fL (80.0-100.0); Mean Platelet Volume 8.1 fL (9.4-12.4); Monocytes # (auto) 1.31 K/uL (0.11-0.59); Monocytes % (auto) 5.7 %; Neutrophils # (auto) 18.18 K/uL (1.40-6.50); Neutrophils % (auto) 78.4 %; Platelet Count 595 K/uL (130-400); Polychromasia 1+; RDW Coefficient of Variation 20.4 % (11.5-14.5); RDW Standard Deviation 53.3 fL (36.4-46.3); Red Blood Count 3.61 M/uL (4.20-5.40); White Blood Count 23.16 K/ul (4.8-10.8)
[2023-09-01] MEDS: CALCIUM CARBONATE 500 MG CHEWABLE TAB PO PRN ×2 (05:03→13:56)
[2023-09-01 05:47] LABS: Folate (Folic Acid),Ser orPlas 6.06 ng/ml (>5.38)
[2023-09-01] MEDS ORDERED: PHARMACY GLYCEMIC MGMT CONSULT PRN ×2 (06:32→06:37)
[2023-09-01] MEDS ORDERED: DKA GOAL RANGE 150-250 mg/dl ONE (06:37)
[2023-09-01] MEDS ORDERED: STAT IV Infusion **Titration per Protocol STA (06:37)
[2023-09-01] MEDS ORDERED: INSULIN REGULAR 250 UNITS in SODIUM CHLORIDE 0.9% 247.5 ML IV SCH (06:45)
--- OUTSIDE RECORDS SUMMARY | 2023-09-01 06:49 | External Medical Summary ---
Author Name Unknown Address Unknown Organization [id number]:[facility] [place] [address] [place] [address] Laboratory Report Ordering Provider Test Date Status SEBASTIAN HUMPHREY 07/03/2023 16:27:52 Final Normal: <30 mg/g creatinine< br/>High: 30-300 mg/g creatinine
Very High: >300 mg/g creatinine
Nephrotic: >2200 mg/g creatinine Observation Date Value Abnormality Reference (Units ) Status Albumin, Urine 07/03/2023 16:27:52 <1.20 (mg/dL) Final Creatinine, Urine 07/03/2023 16:27:52 114 (mg/dL) Final Albumin/Creatinine [Mass Ratio] in Urine 07/03/2023 16:27:52 <11 <30 (mg/g Creat) Final Performing Location [facility] [place] [address] [place] [address]
--- OUTSIDE RECORDS SUMMARY | 2023-09-01 06:49 | External Medical Summary | Summary of Care ---
Author Name Unknown Organization [facility] Address [address] [place] [address] Phone [phone] Care Team Providers Care Sand Caster Apprentice Name Role Phone Clemencia Diana DO Primary Care Provider [phone] Reason for Visit * Reason Onset Date Comments Follow Up Pt present for y early follow up.No concerns. Medication Administration 07/03/2023 Flu an d/or Pneumo Inj Encounter Details Date Type Department Care Team Description 07/03/2023 Office Visit [facility] [address] [place] [address] Selene Peterson PA-C [address] [place] [address] Type 2 diabetes mellitus with hemoglobin A1c goal of less than 7.0% ([facility])*; Body mass index (BMI) of 45.0 to 49.9 in adult ([facility]); HTN, goal below 130/80; Pap smear of cervix declined; Need for prophylactic vaccination and inoculation against influenza Allergies Active Allergy Reactions Severity Noted Date Comments Exenatide 08/28/2014 Possible rash documented as of this encounter (statuses as of 07/03/2023) Medications Medication Sig Dispensed Refills Start Date End Date Status Multiple Vitamins-Minerals (HAIR SKIN NAILS) CAPS Take by mouth. 0 09/26/2017 Active Blood Glucose Monitoring Suppl ([employer] ULTRA SYSTEM) w/Device KITIndications:DM (diabetes mellitus), secondary uncontrolled Use as directed 4 times a day as needed for Hyperglycemia (high sugar) or Hypoglycemia (low sugar). 1 Kit 0 10/05/2017 Active Additional Information Patient not taking.Reported on 07/03/2023 ONETOUCH ULTRASOFT LANCETS MISCIndications:DM (diabetes mellitus), secondary uncontrolled Use as directed 4 times a day as needed for Hyperglycemia (high sugar) or Hypoglycemia (low sugar). 1 Box Dosing Unit 10/05/2017 Active Additional Information Patient not taking.Reported on 07/03/2023 Glucose Blood (ONETOUCH ULTRA BLUE) STRPIndications:DM (diabetes mellitus), secondary uncontrolled Use as directed 4 times a day as needed for Hyperglycemia (high sugar) or Hypoglycemia (low sugar). 100 Strip 10/05/2017 Active Additional Information Patient not taking.Reported on 07/03/2023 Blood Glucose Monitoring Suppl (FREESTYLE SYSTEM) KITIndications:DM (diabetes mellitus), secondary uncontrolled,Type 2 diabetes mellitus with hemoglobin A1c goal of less than 7.0% (HCC) Testing blood sugar up to 4 times per day 1 Kit 0 10/07/2017 Active Additional Information Patient not taking.Reported on 07/03/2023 Glucose Blood (FREESTYLE TEST) STRPIndications:DM (diabetes mellitus), secondary uncontrolled,Type 2 diabetes mellitus with hemoglobin A1c goal of less than 7.0% (HCC) Testing up to 4 times daily 100 Strip 5 10/07/2017 Active Additional Information Patient not taking.Reported on 07/03/2023 FREESTYLE LANCETS MISCIndications:DM (diabetes mellitus), secondary uncontrolled,Type 2 diabetes mellitus with hemoglobin A1c goal of less than 7.0% (HCC) Testing blood sugar up to 4 times per day 100 Each 10/07/2017 Active Additional Information Patient not taking.Reported on 07/03/2023 Etonogestrel 68 MG Subcutaneous Implant (Nexplanon) Use as directed 1 Each 0 10/20/2020 Active Empagliflozin 25 MG Oral Tablet (Jardiance)Indicat ions:Type 2 diabetes mellitus with hemoglobin A1c goal of less than 7.0% (HCC) Take 1 Tablet by mouth in the morning. 90 Tablet 3 12/31/2022 Active Escitalopram Oxalate 10 MG Oral Tablet (Lexapro)Indicatio ns:Mild episode of recurrent major depressive disorder (HCC) Take 1 Tablet by mouth in the morning. 90 Tablet 3 12/31/2022 Active Losartan Potassium 25 MG Oral Tablet (Cozaar)Indication s:HTN, goal below 140/90 Take 1 Tablet by mouth in the morning. 90 Tablet 3 12/31/2022 Active metFORMIN HCl 1000 MG Oral Tablet (Glucophage)Indica tions:Type 2 diabetes mellitus with hemoglobin A1c goal of less than 7.0% (HCC) TAKE 1 TABLET BY MOUTH TWICE A DAY WITH BREAKFAST AND DINNER 180 Tablet 3 12/31/2022 Active documented as of this encounter (statuses as of 07/03/2023) Active Problems Problem Noted Date Body mass index (BMI) of 45.0 to 49.9 in adult 03/28/2019 Overview: Per Obesity protocol - Type 2 diabetes mellitus with hemoglobin A1c goal of less than 7.0% 01/26/2012 Overview: ICD-10 update of inactive term Polycystic ovaries 01/26/2012 Elevated liver enzymes 01/26/2012 Metrorrhagia documented as of this encounter (statuses as of 07/03/2023) Resolved Problems Problem Noted Date Resolved Date Body mass index (BMI) of 40.0 to 44.9 in adult 0 10/04/2018 03/31/2019 Overview: Per Obesity protocol #1 Dermatitis 07/23/2012 03/04/2019 Elevated blood pressure, situational 01/26/2012 11/05/2020 Obesity, morbid (more than 1 00 lbs over ideal weight or BMI > 40) 01/26/2012 06/25/2017 Overview: Per Obesity protocol #1 Hyperinsulinism 01/26/2012 03/04/2019 DM (diabetes mellitus), secondary uncontrolled 1 10/26/2010 01/26/2012 Adult body mass index 50.0-59.9 08/11/2011 09/26/2017 BMI, pediatric, 99th percentile or greater for a ge 12/13/2009 08/30/2018 Overview: Per Obesity Taxonomy Abnormal weight gain 11/27/2008 11/05/2020 Elevated liver enzymes 11/27/2008 2 Acquired acanthosis nigricans 11/27/2008 Hyperinsulinemia 11/27/2008 01/26/2012 Routine child health exam 05/03/20082018 Morbid obesity, BMI not known 05/03/2008 Overview: Per Obesity Taxonomy Need for prophylactic vaccin ation and inoculation against other combinations of diseases 05/03/2008 03/04/2019 Polycystic ovaries 01/26/2012 documented as of this encounter (statuses as of 07/03/2023) Immunizations Name Administration Dates Next Due COVID-19 mRNA, LNP-s, No Pre serve, 2-Dose Series (Stackpop) 06/29/2021,12/11/2020,11/14/2020 Covid-19, Mrna, Lnp-s, Pf, B ivalent, 30 Mcg, IM, 12 yrs and above (Pfizer) 06/18/2022 HPV Vaccine, 4-Valent 11/15/2008,07/05/2008,04/21 Hepatitis B, 20+ yrs 01/22/2016,08/22/2015,07/1612/22/2015 Pneumococcal Polysaccharide PPV23 (Pneumovax) 09/29/2011 SEASONAL INFLUENZA, PF, 6 M & Above, IM , (FLULAVAL or FLUZONE) 07/03/2023,06/07/2022,06/22/2021,05/22 Seasonal Influenza, Quadriva lent, No Preserve, IM 06/21/2018,07/10/2015 Seasonal Influenza, Split, I IV3, With Preserve, Inj 06/02/2017,06/26/2014,09/19/2013,09/2011,08/25/2011 TD, Preservative Free 03/04/2019 TDAP (age 11 and older)(Adacel) 05/03/2008 documented as of this encounter Social History Tobacco Use Types Packs/Day Years Used Date Smoking Tobacco: Never Smokeless Tobacco: Never Alcohol Use Standard Drinks/Week Comments No 0 (1 standard drink = 0.6 oz pur e alcohol) Food Insecurity Answer Date Recorded Within the past 12 months, y ou worried that your food would run out before you got money to buy more. Never true 12/17/2022 Within the past 12 months, t he food you bought just didn't last and you didn't have money to get more. Never true 12/17/2022 Sex Assigned at Date Recorded Female 12/16/2022 8:08 PM E DT Job Start Date Occupation Industry Not on file Not on file Not on file documented as of this encounter Last Filed Vital Signs Vital Sign Reading Time Taken Comments Blood Pressure 128/62 07/03/2023 3:31 PM EDT Pulse 128 07/03/2023 3:31 PM EDT Temperature 36.3 C (97.3 F) 07/03/2023 3:31 PM ED T Respiratory Rate 18 07/03/2023 3:31 PM EDT Oxygen Saturation - - Inhaled Oxygen Concentration - - Weight 120.3 kg (265 lb 3.2 oz) 07/03/2023 3:31 PM EDT Height - - Body Mass Index 46.98 11/26/2020 4:03 PM EST documented in this encounter Patient Instructions * Patient Instructions* Roshni Cardenas LPN - 07/03/2023 4:14 PM EDT ~~PATIENT INSTRUCTIONS FOR FLU SHOT~~ Possible side effects of influenza vaccine, (flu shot), are usually mild and include: 1. Soreness or redness at injection site 2. Low grade fever 3. Body aches You may use Tylenol/Acetaminophen as needed for these symptoms. LET YOUR DOCTOR KNOW IMMEDIATELY IF YOU HAVE DIFFICULTY BREATHING OR SWALLOWING, EXPERIENCE ITCHINGOF FEET OR HANDS, HAVE SWELLING OF EYES, FACE OR INSIDE OF NOSE. documented in this encounter Progress Notes * Roshni Cardenas LPN - 07/03/2023 4:13 PM EDT PRE - ADMINISTRATION DOCUMENTATION Are you experiencing any cold symptoms or fever? No Have you had Guillain-[place] Syndrome (an illness that causes paralysis) within the last 6 weeks? No Have you had the flu shot in the past? YES Have you ever had a reaction to the flu shot? No Roshni Cardenas LPN, 07/03/2023 4:13 PM Immunization Administration Documentation Time Out Procedure Performed: Yes Patient Identified (Ask Name/Date of ): Yes Does the patient have a fever greater than 101 degrees today? No Patient allergic to latex? No VFC Stock: No Immunization(s) verified: Yes, Immunization Name: Flu, VIS Sheet(s) given: Yes Verified Side and Site: Yes Verified Shot(s) with Parent(s)/Patient: Yes * Selene Peterson PA-C - 07/03/2023 3:46 PM EDT Images from the original note were not included. History of Present Illness Laura Pierson is a 32 year old female that presents for Follow Up (Pt present for yearly follow up./No concerns.) Here for reg return Has been some time since she had a face to face Current with the eye doctor Does want a flu shot Labs due Hemoglobin AIC Results: Lab Results Component Value Date/Time HEMOGLOBIN A1C - [facility] 7.7 (H) 05/08/2022 08:34 AM HEMOGLOBIN A1C - [facility] 7.8 (H) 11/05/2020 12:35 PM HEMOGLOBIN A1C - [facility] 7.1 (H) 08/02/2020 09:47 AM HEMOGLOBIN A1C - [facility] 8.2 (H) 10/14/2019 07:52 AM HEMOGLOBIN A1C - [facility] 8.2 (H) 06/06/2019 02:37 PM Down 9 more lbs Has deferred pap int eh past. Energy is good Past Medical History: Diagnosis Date Abnormal weight gain Acquired acanthosis nigricans Diabetes mellitus Elevated liver enzymes Hyperinsulinemia Metrorrhagia Polycystic ovaries Extensive ROS Constitutional (f/c/wt/vision/hearing): Negative and eye exam current. Resp (cough/sob/ann): Negative CV (cp/palp/fluttering/diaphoresis/ann/pnd):Negative GI (n/v/d/hrtburn): Negative Endo (hair/cold or heat intol/ 3 p's): Negative Neuro (shaking/weak/fatigu/parasthesi/): Negative Skin (rash/easy bruis/xerosis): Negative Psy (si/hi/halluc/): Negative (nocturia/hesit/drib/sexual review): Negative Lymph (swollen glands/b sx's/: Negative Physical Exam Vitals: 07/03/23 1531 Temp: 36.3 C (97.3 F) Pulse: 128 Resp: 18 BP: 128/62 BP Readings from Last 3 Encounters: 07/03/23 128/62 08/01/21 122/74 11/26/20 130/72 Wt Readings from Last 3 Encounters: 07/03/23 120.3 kg (265 lb 3.2 oz) 08/01/21 124.3 kg (274 lb) 11/26/20 123.8 kg (273 lb) BMI Readings from Last 3 Encounters: 07/03/23 46.98 kg/m 08/01/21 48.54 kg/m 11/26/20 48.36 kg/m Ht Readings from Last 3 Encounters: 11/26/20 (!) 1.6 m (5' 3") 11/05/20 (!) 1.6 m (5' 3") 08/02/20 (!) 1.6 m (5' 3") General: alert, healthy, and no distress Head: Normocephalic, No masses, lesions, tenderness or abnormalities Eye Exam: PERRLA, extraocular movements intact, conjunctiva are pink and non- injected, sclera clear Ears: External ears normal, Canals clear, TM's Normal Nose: no mucosal erythema, no mucosal edema, no purulent discharge Oropharynx: no exudate, no erythema, lips, buccal mucosa, and tongue normal, and mucous membranes are moist Neck: supple, no adenopathy, no bruits, thyroid normal size, non-tender, without nodularity Heart: regular rate & rhythm, no murmur, no gallops, S-1 normal, and S-2 normal Lungs: chest symmetric with normal AP diameter, no chest deformities noted, no chest wall tenderness, lungs clear to auscultation Extremities: less than 2 second capillary refill, no joint deformities, effusion, or inflammation Skin: skin color, texture, turgor are normal, L elbow she has a small aptch of psoriasis Assessment and Plan There are no diagnoses linked to this encounter. Type 2 diabetes mellitus with hemoglobin A1c goal of less than 7.0% ([facility]) (Primary) - DIABETIC EYE EXAM - ALBUMIN / CREATININE RATIO, URINE; Future; Expected date: 07/03/2023 Body mass index (BMI) of 45.0 to 49.9 in adult (HCC) The patient is asked to make an attempt to improve diet and exercise patterns to aid in medical management of this problem. HTN, goal below 130/80 - ALBUMIN / CREATININE RATIO, URINE; Future; Expected date: 07/03/2023 At or below goal Pap smear of cervix declined Labs due Cont current meds Seew hat bg looksl colby Congratulated onw eight loss Scan in eye paperowkr Wrap-Up Time: I spent a total of 10-19 minutes (exact time 19 mins) on the date of service in preparation, delivery, and documentation of the care provided to Laura Pierson excluding any time spent in the performance of separately billed services. Selene Peterson PA-C 07/03/2023 3:52 PM documented in this encounter Nursing Notes * LOGAN Aldrich - 07/03/2023 3:31 PM EDT The patient has been properly identified by confirmation of name and date of . Chief Complaint Patient presents with Follow Up Pt present for yearly follow up. No concerns. documented in this encounter Plan of Treatment Pending Results Name Type Priority Associated Diagnoses Date /Time ALBUMIN / CREATININE RATIO, URINE Lab Routine Type 2 diabetes mellitus with hemoglobin A1c goal of less than 7.0% ([facility]) HTN, goal below 130/80 07/03/2023 4:27 PM EDT Scheduled Orders Name Type Priority Associated Diagnoses Orde r Schedule ALBUMIN / CREATININE RATIO, URINE Lab Routine Type 2 diabetes mellitus with hemoglobin A1c goal of less than 7.0% (HCC) HTN, goal below 130/80 Expected: 07/03/2023 (Approximate), Expires: 07/02/2024 Health Maintenance Due Date Last Done Comments HIV Screening 2006 Hepatitis C Screening 2009 Pneumococcal Vaccine: Pediatrics (0 to 5 Years) and At-Risk Patients (6 to 64 Years) (2 - PCV) 09/29/2012 09/29/2011 Albumin/Creatinine Ratio 06/06/2020 019, 03/04/2019, 08/30/2018, Additional history exists DIABETES-EYE EXAM 06/16/2021 06/16/2020, , 11/02/2013, Additional history exists Depression Screening 08/02/2021 08/02/2020 Diabetic Foot Exam 08/02/2021 08/02/2020, 0 06/06/2019, 06/06/2019, Additional history exists PAP SMEAR-ANNUAL AGES 18-100 08/01/202207/2021, 02/21/2016, 09/19/2013 HbA1c 11/08/2022 05/08/2022, 10/22, 08/02/2020, Additional history exists B-12 05/08/2023 05/08/2022, 02/19, 09/26/2017 GFR 05/08/2023 05/08/2022, 10/22, 08/02/2020, Additional history exists COVID-19 Vaccine (2022- season) 2023 06/18/2022, 06/29/2021, 12/11/2020, Additional history exists DTaP,Tdap,and Td Vaccines (3 - Td or Tdap) 03/04/2029 03/04/2019, 05/03/2008 GARDASIL-HPV IMMUNIZATION SERIES Completed 11/15/2008, 07/05/2008, 05/03/2008 Hepatitis B Completed 01/22/2016, 1210/2014, 07/16/2015 Influenza Vaccine (FLU shot) Completed , 06/07/2022, 06/22/2021, Additional history exists MENINGOCOCCAL (MENACTRA/MENVEO) Aged Out No longer eligible based on patient's age to complete this topic documented as of this encounter Medical Devices Not on filedocumented as of this encounter Visit Diagnoses Diagnosis Type 2 diabetes mellitus with hemoglobin A1c goal of less than 7.0% (HCC)- Primary Body mass index (BMI) of 45.0 to 49.9 in adult (HCC) HTN, goal below 130/80 Unspecified essential hypertension Pap smear of cervix declined Surgical or other procedure not carried out because of patient's decision Need for prophylactic vaccination and inoculation against influenza documented in this encounter Care Teams Sand Caster Apprentice Relationship Specialty Start Date End Date Clemencia Diana, [address] [facility] [place] [address] PCP - General Family Medicine 06/06/19 documented as of this encounter
--- OUTSIDE RECORDS SUMMARY | 2023-09-01 06:49 | External Medical Summary ---
Author Name Unknown Address Unknown Organization [id number]:[facility] [place] [address] [facility] [place] [address] Laboratory Report Ordering Provider Test Date Status WILSON HYATT 07/03/2023 16:27:52 Final Observation Date Value Abnormality Reference (Units ) Status BUN 07/03/2023 16:27:52 9 6-20 (mg/dL) Final Creatinine 07/03/2023 16:27:52 0.6 0.5-1.0 (mg/dL) Final Glomerular filtration rate/1.73 sq M.predicted [Volume Rate/Area] in Serum, Plasma or Blood by Creatinine-based formula (CKD-EPI) 07/03/2023 16:27:52 >90 >=60 (mL/min) Final eGFR is calculated based on the CKD-EPI 2020 equation SODIUM 07/03/2023 16:27:52 137 135-146 (m mol/L) Final Potassium 07/03/2023 16:27:52 4.7 3.5-5.1 (m mol/L) Final Cl 07/03/2023 16:27:52 99 98-107 (mm ol/L) Final CO2 07/03/2023 16:27:52 25 22-32 (mmo l/L) Final Anion gap 07/03/2023 16:27:52 13 7-15 (mmol /L) Final Glucose 07/03/2023 16:27:52 132 Above high normal 70 -120 (mg/dL) Final Albumin 07/03/2023 16:27:52 3.5 Below low normal 3.8 -5.0 (g/dL) Final AST (Aspartate aminotransferase) 07/03/2023 16:27:52 21 10-35 (U/L) Fin al Alk Phos 07/03/2023 16:27:52 93 35-130 (U/ L) Final Bilirubin, Total 07/03/2023 16:27:52 0.3 <=1 .2 (mg/dL) Final Calcium 07/03/2023 16:27:52 9.0 8.4-10.2 ( mg/dL) Final Protein 07/03/2023 16:27:52 6.9 6.0-8.3 (g /dL) Final ALT (Alanine aminotransferase) 07/03/2023 16:27:52 8 Below low normal 10-35 (U/L) Final Performing Location [facility] [place] - [facility] [address] [facility] [address]
--- OUTSIDE RECORDS SUMMARY | 2023-09-01 06:49 | External Medical Summary | Summary of Care ---
Author Name Unknown Organization [facility] Address [address] [place] [address] Phone [phone] Care Team Providers Care Superintendent [employer]munition Storage Name Role Phone Clemencia Diana DO Primary Care Provider [phone] Reason for Visit * Reason Comments Outpatient Testing Encounter Details Date Type Department Care Team Description 07/03/2023 Laboratory Laboratory, [facility] [address] [place] [address] [facility], Laboratory [address] [place] [address] Type 2 diabetes mellitus with hemoglobin A1c goal of less than 7.0% ([facility]); HTN, goal below 130/80 Allergies Active Allergy Reactions Severity Noted Date Comments Exenatide 08/28/2014 Possible rash documented as of this encounter (statuses as of 07/03/2023) Medications Medication Sig Dispensed Refills Start Date End Date Status Multiple Vitamins-Minerals (HAIR SKIN NAILS) CAPS Take by mouth. 0 09/26/2017 Active Blood Glucose Monitoring Suppl (ONETOUCH ULTRA SYSTEM) w/Device KITIndications:DM (diabetes mellitus), secondary [...] mRNA, LNP-s, No Pre serve, 2-Dose Series ([employer]) 06/29/2021,12/11/2020,11/14/2020 Covid-19, Mrna, Lnp-s, Pf, B ivalent, [...] on file documented as of this encounter Plan of Treatment Pending Results Name Type Priority Associated Diagnoses Date /Time COMPREHENSIVE METABOLIC PANEL Lab Routine Type 2 diabetes mellitus with hemoglobin A1c goal of less than 7.0% (HCC) 07/03/2023 4:27 PM EDT LIPID PANEL WITH DIRECT LDL IF TG IS HIGH Lab Routine Type 2 diabetes mellitus with hemoglobin A1c goal of less than 7.0% (HCC) 07/03/2023 4:27 PM EDT HEMOGLOBIN A1C Lab Routine Type 2 diabetes mellitus with hemoglobin A1c goal of less than 7.0% (HCC) 07/03/2023 4:27 PM EDT VITAMIN B12 Lab Routine Type 2 diabetes mellitus with hemoglobin A1c goal of less than 7.0% (HCC) 07/03/2023 4:27 PM EDT ALBUMIN / CREATININE RATIO, URINE Lab Routine Type 2 diabetes mellitus with hemoglobin A1c goal of less than 7.0% ([facility]) HTN, goal below 130/80 07/03/2023 4:27 PM EDT Health Maintenance Due Date Last Done Comments [...] 10/22, 08/02/2020, Additional history exists COVID-19 Vaccine (5 - 2022-24 season) 2023 06/18/2022, 06/29/2021, 12/11/2020, Additional history exists DTaP,Tdap,and Td Vaccines (3 - Td or Tdap) 03/04/2029 03/04/2019, 05/03/2008 GARDASIL-HPV IMMUNIZATION SERIES Completed 11/15/2008, 07/05/2008, 05/03/2008 Hepatitis B Completed 01/22/2016, 10/2014, 07/16/2015 Influenza Vaccine (FLU shot) Completed , 06/07/2022, 06/22/2021, Additional history exists MENINGOCOCCAL (MENACTRA/MENVEO) Aged Out No longer eligible based on patient's age to complete this topic documented as of this encounter Medical Devices Not on filedocumented as of this encounter Visit Diagnoses Diagnosis Type 2 diabetes mellitus with hemoglobin A1c goal of less than 7.0% (HCC) HTN, goal below 130/80 Unspecified essential hypertension documented in this encounter Care Teams Superintendent [employer]munition Storage Relationship Specialty Start Date End Date Clemencia Diana DO [address] [place] [address] PCP - General Family Medicine 06/06/19 documented as of this encounter
--- OUTSIDE RECORDS SUMMARY | 2023-09-01 06:50 | External Medical Summary ---
Author Name Unknown Address Unknown Organization [id number]:[facility] [place] [address] [facility] [place] [address] Laboratory Report Ordering Provider Test Date Status WILSON HYATT 07/03/2023 16:27:52 Final Observation Date Value Abnormality Reference (Units ) Status Triglyceride 07/03/2023 16:27:52 177 Above high normal <=174 (mg/dL) Final Triglyceride Reference Range s (mg/dL):
<150 Acceptable
150-174 Borderline high
175-499 High
>=500 Very high Cholesterol 07/03/2023 16:27:52 143 <200 (mg /dL) Final Total Cholesterol Reference Ranges (mg/dL):
<200 Desirable
200-239 Borderline high
>=240 High HDL 07/03/2023 16:27:52 22 Below low normal >49 (mg/dL) Final HDL Cholesterol Reference Ra nges (mg/dL):
>=60 High (Desirable)
<50 Low (Undesirable) For Females
<40 Low (Undesirable) For Males NON-HDL CHOLESTEROL 07/03/2023 16:27:52 121 <=159 (mg/dL) Final Non-HDL Cholesterol Referenc e Range (mg/dL):
<100 Target level for high risk ASCVD patient
<130 Optimal for general population
130-159 Near optimal for general population
160-189 Borderline High
190-219 High
>=220 Very High LDL, (calculated) 07/03/2023 16:27:52 86 <= 129 (mg/dL) Final LDL Cholesterol Reference Ra nges (mg/dL):
<70 Target level for high risk ASCVD patient
<100 Optimal for general population
100-129 Near optimal for general population
130-159 Borderline high
160-189 High
>=190 Very high Performing Location [facility] [place] [address] [facility] [address]
--- OUTSIDE RECORDS SUMMARY | 2023-09-01 06:50 | External Medical Summary ---
Author Name Unknown Address Unknown Organization [id number]:LABORATORY [facility] [place] - [address] [facility] [address] [facility] [address] Laboratory Report Ordering Provider Test Date Status WILSON HYATT 07/03/2023 16:27:52 Final Observation Date Value Abnormality Reference (Units ) Status HbA1C 07/03/2023 16:27:52 7.7 Above high normal 4. 0-5.6 (%) Final The use of HbA1c to monitor glycemic status is based on normal hemoglobin and HbA composition. This test should not be used in patients with abnormal hemoglobin that affects the half life of the red blood cell or the in vivo glycation rates. Glucose, estimated average 07/03/2023 16:27:52 174 Above high normal <126 (mg/dL) Tito saha Performing Location LAB[facility]ATORY [facility] [place] - [address] [facility] [address]
--- OUTSIDE RECORDS SUMMARY | 2023-09-01 06:50 | External Medical Summary ---
Author Name Unknown Address Unknown Organization [id number]:LABORATORY [facility] - [address] [place] [address] Laboratory Report Ordering Provider Test Date Status 07/03/2023 16:27:52 Final Observation Date Value Abnormality Reference (Units ) Status Vitamin B12 07/03/2023 16:27:52 [id number] (pg/mL) Final Performing Location LABORATORY [facility] - [address] [place] [address]
--- NOTE | 2023-09-01 07:20 | Ultrasound Report ---
BILATERAL LOWER EXTREMITY VENOUS DOPPLER HISTORY: Acute pain and swelling of the lower legs has PE. dvt? COMPARISON STUDY: None. FINDINGS: Slow venous flow is noted throughout the left popliteal vein. There is normal compressibili ty, flow, and augmentation within the bilateral lower extremity deep venous systems. IMPRESSION: No DVT within the right or left lower extremity. ACT 112: Negative or not required by law. Electronically signed by: Umer Mosher M.D. 09/01/2023 7:19 AM
[2023-09-01] MEDS ORDERED: INSULIN ASPART PER UNIT CHARGE SC SCH ×2 (07:30)
[2023-09-01] MEDS ORDERED: PIPERACILLIN/TAZOBACTAM 4.5 GM/100 ML BAG IV STA (07:44)
[2023-09-01 07:48] LABS: Estimated Average Glucose 143 mg/dl; Hemoglobin A1C 6.6 % (4.5-5.6)
[2023-09-01 07:59] LABS: Anion Gap 18 (3-11); BUN Creatinine Ratio 21.7 (10-20); Blood Urea Nitrogen 10 mg/dl (6-23); Calcium 8.5 mg/dl (8.6-10.3); Carbon Dioxide 17 mmol/L (21-32); Chloride 99 mmol/L (98-107); Creatinine Clr Calc Pharmacy 195.6 ml/min; Est GFR (African American) > 150.0 ml/min; Est GFR (Non-African American) 132.6 ml/min; Glucose 139 mg/dl (70-99(Fasting)); Magnesium 1.8 mg/dl (1.7-2.4); Phosphorus 3.2 mg/dl (2.5-4.9); Potassium 3.7 mmol/L (3.5-5.1); Sodium 134 mmol/L (136-145)
[2023-09-01] MEDS: D5W AND NSS 1,000 ML IV SCH ×2 (08:07→13:37)
[2023-09-01 08:11] LABS: Hemoglobin 6.6 g/dl (12.0-16.0)
[2023-09-01 08:30] LABS: ANTI-Xa, UFH(UnfractionatedHep < 0.10 IU/ml (0.3-0.7)
[2023-09-01] MEDS ORDERED: SODIUM CHLORIDE 0.9% 250 ML IV PRN (08:46)
[2023-09-01] MEDS ORDERED: ONDANSETRON INJ 2 MG/ML 2 ML VIAL ONE (09:03)
--- NOTE | 2023-09-01 09:03 | Electrocardiogram Report ---
Test Reason : Blood Pressure : / mmHG Vent. Rate : 147 BPM Atrial Rate : 147 BPM P-R Int : 134 ms QRS Dur : 078 ms QT Int : 252 ms P-R-T Axes : 078 063 057 degrees QTc Int : 394 ms Sinus tachycardia Incomplete right bundle branch block Poor R wave progression, consider anterior MO vs. lead placement vs. LVH Abnormal ECG No previous ECGs available Confirmed by Steven Lobato ([id number]) on 09/01/2023 9:03:09 AM Referred By: REFERRED SELF Confirmed By:Steven Lobato
[2023-09-01] MEDS: INSULIN ASPART PER UNIT CHARGE SC SCH ×4 (09:37→20:24)
[2023-09-01] MEDS: LOSARTAN POTASSIUM 25 MG TAB PO SCH (10:01)
[2023-09-01] MEDS: ESCITALOPRAM OXALATE 10 MG TAB PO SCH (10:01)
[2023-09-01 11:42] LABS: Anion Gap 15 (3-11); BUN Creatinine Ratio 18.8 (10-20); Blood Urea Nitrogen 9 mg/dl (6-23); Calcium 8.3 mg/dl (8.6-10.3); Carbon Dioxide 20 mmol/L (21-32); Chloride 100 mmol/L (98-107); Creatinine Clr Calc Pharmacy 202.1 ml/min; Est GFR (African American) > 150.0 ml/min; Est GFR (Non-African American) 130.7 ml/min; Glucose 156 mg/dl (70-99(Fasting)); Magnesium 1.8 mg/dl (1.7-2.4); Phosphorus 2.4 mg/dl (2.5-4.9); Potassium 3.3 mmol/L (3.5-5.1); Sodium 135 mmol/L (136-145)
--- NOTE | 2023-09-01 12:47 | History & Physical Report ---
Date of Service September 01, 2023 Assessment & Plan (1) Ovarian cystic mass: Plan: Patient is a 32-year-old G0 virgin female with history of PCOS, obesity, irregular and heavy menstrual cycles, who presents to the ER chest pain and shortness of breath, not being treated for PE with IV heparin and anemia with blood transfusion, Incidental finding of large pelvic mass per abdomen pelvic CT scan, history of ovarian cyst in 2010 with no follow-up. I would recommend her to be referred to a tertiary care center where her BREWING DIRECTOR oncology is available if this mass turned out to be malignant, I will order markers of ovarian cancer start the process, Continue per protocols per medicine department. All questions were answered. (2) Metabolic acidosis: (3) Upper respiratory infection, viral: (4) Anemia: (5) Weakness: (6) Nausea & vomiting: Admission and Anticipated Discharge Date Admission Date: August 31, 2023 History of Present Illness Primary Care Provider: Clemencia Diana, Patient is a 32-year-old G0, virgin female who presented to ER with chest pain shortness of breath and found to have anemia requiring blood transfusion and pulmonary embolism for which she has been treated with IV heparin. CT of abdomen showed large abdominal/pelvic mass as below. IMPRESSION: There is a complex probably cystic mass with eccentric solid components filling and distending the abdomen and pelvis, measuring 20.2 x 28 x 28.4 cm (volume 8.42 L). Trace surrounding free fluid in the pelvis. 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 Patient has a history of PCOS, irregular and heavy menses in the past. She was on control pill and was switched to Nexplanon about 3 years ago. She still gets. Irregularly but they are not heavy. She denies vaginal bleeding, vaginal discharge, pelvic pain or pressure. She denies any history of STDs and never been sexually active neither . She does not remember when was her last BREWING DIRECTOR exam. I reviewed her records at [facility] and she had pelvic ultrasound in 2010 which was limited as belo w: FINDINGS: Study performed for bleeding. Last menstrual period not known. Patient does not have regular cycles. History of polycystic ovarian syndrome reported. Examination limited by patient body habitus and inability to tolerate endovaginal examination. Transabdominal images demonstrate a largely decompressed urinary bladder, which further limits evaluation. The uterus is no rmal in size, measuring 6.6 x 3.2 x 4.2 cm. No myometrial mass appreciated, but detail is limited. The endometrium is not seen. There is a simple cystic structure in the left adnexa which measures 5.5 x 3.8 x 4.0 cm. No solid mass seen. No normal left ovarian tissue visualized. Right ovary obscured. No pelvic free fluid. IMPRESSION: Limited examination demonstrates a 5.5-mm likely simple cystic left adnexal structure. This presumably represents a physiologic left ovarian cyst. Endometrium not visualized. The examination is significantly limited as the patient was unable to tolerate transvaginal examination and was not adequately prepped for transabdominal evaluation. Recommend she return for completion of this examination when the urinary bladder is adequately distended. One of her patient cousin has ovarian cancer was 40 years old and is alive. She denies personal or family history of breast cancer. Allergies Allergy/AdvReac Type Severity Reaction Status Date / Time exenatide [From Bydureon] Allergy Rash Verified 08/31/23 20:41 Home Medications Medication Instructions Recorded Confirmed Type empagliflozin 25 mg tablet 25 mg PO DAILY 05/28/20 08/31/23 History (Jardiance) losartan 25 mg tablet 25 mg PO DAILY 05/28/20 08/31/23 History metformin 1,000 mg tablet 1,000 mg PO BID 05/28/20 08/31/23 History escitalopram oxalate 10 mg tablet 10 mg PO QAM 08/31/23 08/31/23 History Patient History Social History Smoking Status: Never smoker Hx Alcohol Use: No Hx Substance Use: No Preferred Language: Congolese Communication Ability: Effective Mechanical Detailer Required: No Beliefs That Will Affect Care: None Current Living Situation: Alone Other Information That Helps Us Care for You: No Feels Safe at Home: Yes Safety Concerns: Feels Safe At This Time Assistive Devices: None BREWING DIRECTOR History As per HPI Review of Systems as per Subjective / HPI Physical Exam Constitutional: WD/WN, vitals as above + obese and + lethargic Genitourinary: Deferred Results & Data Vital Signs (Past 12 Hours) Vital Signs Temp Pulse Pulse Resp BP BP Pulse Ox 09/01/23 11:35 12 131/80 94 09/01/23 11:24 09/01/23 10:35 36.5 C 117 H 19 114/76 99 09/01/23 10:05 36.6 C 120 H 24 120/82 97 09/01/23 09:50 130 H 24 100/74 97 09/01/23 09:30 36.5 C 124 H 26 H 136/94 97 09/01/23 07:10 121 H 24 190/118 H 96 09/01/23 06:00 108 H 25 H 163/113 H 97 09/01/23 05:00 112 H 14 114/94 96 09/01/23 04:25 09/01/23 04:03 119 H 21 144/94 H 98 09/01/23 03:00 109 H 25 H 114/71 95 09/01/23 02:00 139/83 09/01/23 02:00 111 H 19 97 09/01/23 01:33 120 H 24 109/72 97 09/01/23 01:19 117 H 26 H 127/84 98 Pulse Ox O2 Del Method O2 Del Method 09/01/23 11:35 09/01/23 11:24 94 Room Air 09/01/23 10:35 09/01/23 10:05 09/01/23 09:50 09/01/23 09:30 09/01/23 07:10 Room Air 09/01/23 06:00 09/01/23 05:00 09/01/23 04:25 Room Air 09/01/23 04:03 09/01/23 03:00 09/01/23 02:00 09/01/23 02:00 09/01/23 01:33 09/01/23 01:[address] of abdomen pelvis: IMPRESSION: There is a complex probably cystic mass with eccentric solid components filling and distending the abdomen and pelvis, measuring 20.2 x 28 x 28.4 cm (volume 8.42 L). Trace surrounding free fluid in the pelvis. 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 Code Status & VTE Plan VTE Prophylaxis Plan VTE Prophylaxis will be ordered: Yes (1) Ovarian cystic mass Laterality: unspecified laterality Qualified Code(s): N83.209 - Unspecified ovarian cyst, unspecified side
--- NOTE | 2023-09-01 13:03 | Pharmacy Report ---
Pharmacy Glycemic Short Note 2 - Date of Service September 01, 2023 - Glycemic Short BSG Results (Last 24 hours): 08/31/23 09/01/23 09/01/23 19:01 00:45 04:09 Glucose 168 H 125 H 124 H POC Glucose 09/01/23 09/01/23 09/01/23 07:14 07:57 08:56 Glucose 139 H POC Glucose 145 H 156 H 09/01/23 09/01/23 09/01/23 10:04 11:03 11:21 Glucose 156 H POC Glucose 166 H 174 H 09/01/23 12:11 Glucose POC Glucose 171 H OUTPATIENT ANTIDIABETIC REGIMEN: * empaglifozin 25mg PO daily * metformin 1gm PO BID HbA1C: 6.6% ASSESSMENT: * Pt is a 32 year old female with a history of DM2 admitted in the setting of weakness, N/V, and weight loss. Found to have new PE and ovarian mass. Possible euglycemic DKA. Initial labs: BSG-168, AG-17, Bicarb-19. Insulin drip initiated per DKA protocol at 0.05 unit/kg/hr given BSG within goal. * Dextrose-containing IVF started with insulin drip to keep BSG within goal range. Diet ordered. * Continue insulin drip per DKA protocol until AG <12, bicarb >/=15. Consider Lantus 15 units SQ X 1 when criteria are met for transition to SQ and overlap with drip X 2 hours if drip not paused per protocol. Novolog ACHS with a carb ratio of 10gm/unit while drip running and add correction of 25-30mg/dL/unit once drip is off. PLAN FOR INPATIENT GLYCEMIC CONTROL: * Hold outpatient oral diabetes medications * Basal insulin * Insulin drip per DKA protocol until above criteria are met, then consider Lantus 15 units SQ X 1 for drip transition * Bolus insulin * NovoLog per scale ACHS or Q6hrs while NPO * Goal Range: Low 110 mg/dL - High 140 mg/dL * Correction Factor: - mg/dL/unit * Nutritional / Prandial insulin per carb ratio of 1 unit per 10 grams CHO consumed
[2023-09-01 13:27] LABS: Hematocrit (blood only) 27.3 % (37.0-47.0); Hemoglobin 7.7 g/dl (12.0-16.0)
[2023-09-01] MEDS ORDERED: POTASSIUM PHOS 3 MMOL/1 ML INFUSION IV STA (13:29)
[2023-09-01] MEDS ORDERED: POTASSIUM PHOSPHATE 21 MMOL in SODIUM CHLORIDE 0.9% 500 ML IV ONE (13:45)
[2023-09-01] MEDS: D5NSS + 20MEQ KCL 20 MEQ/1,000 ML BAG IV SCH ×2 (15:47→20:36)
[2023-09-01 16:01] LABS: A calco-baum cmplx NotReported Not Detected (NotDetected); Bact fragilis Not Reported Not Detected (NotDetected); Blood Culture Id Panel See PCR Comment (NotDetected); C auris Not Reported Not Detected (NotDetected); Calbicans Not Reported Not Detected (NotDetected); Candida glabrata Not Reported Not Detected (NotDetected); Candida krusei Not Reported Not Detected (NotDetected); Cneoformans/gatti Not Reported Not Detected (NotDetected); Cparapsilosis Not Reported Not Detected (NotDetected); E cloacae compx Not Reported Not Detected (NotDetected); Efaecalis Not Reported Not Detected (NotDetected); Efaecium Not Reported Not Detected (NotDetected); Enterobacterales Not Reported Not Detected (NotDetected); Escherichia coli Not Reported Not Detected (NotDetected); H influenzae Not Reported Not Detected (NotDetected); K aerogenes Not Reported Not Detected (NotDetected); Koxytoca Not Reported Not Detected (NotDetected); Kpneumoniae grp Not Reported Not Detected (NotDetected); Lmonocyt Not Reported Not Detected (NotDetected); N meningitidis Not Reported Not Detected (NotDetected); P aeruginosa Not Reported Not Detected (NotDetected); Proteus spp Not Reported Not Detected (NotDetected); Salmonella spp Not Reported Not Detected (NotDetected); Smarcescens Not Reported Not Detected (NotDetected); Staph lugdunensis Not Reported Not Detected (NotDetected); Staph spp. Not Reported DETECTED (NotDetected); Staphaureus Not Reported Not Detected (NotDetected); Staphepi Not Reported Not Detected (NotDetected); Stenmaltophilia Not Reported Not Detected (NotDetected); Strep agal(GrpB) Not Reported Not Detected (NotDetected); Strep pneum Not Reported Not Detected (NotDetected); Strep pyog (GrpA) Not Reported Not Detected (NotDetected); Strep spp Not Reported Not Detected (NotDetected)
[2023-09-01 16:02] LABS: Staphylococcus spp. DETECTED (NotDetected)
[2023-09-01 16:16] LABS: Hematocrit (blood only) 28.5 % (37.0-47.0)
[2023-09-01] MEDS: PIPERACILLIN/TAZOBACTAM 4.5 GM in DEXTROSE 5% MINI-B 100 ML IV SCH (16:35)
[2023-09-01 16:46] LABS: Anion Gap 12 (3-11); BUN Creatinine Ratio 17.8 (10-20); Blood Urea Nitrogen 8 mg/dl (6-23); Calcium 8.4 mg/dl (8.6-10.3); Carbon Dioxide 23 mmol/L (21-32); Chloride 101 mmol/L (98-107); Creatinine Clr Calc Pharmacy 215.6 ml/min; Est GFR (African American) > 150.0 ml/min; Est GFR (Non-African American) 133.5 ml/min; Glucose 129 mg/dl (70-99(Fasting)); Magnesium 1.9 mg/dl (1.7-2.4); Phosphorus 2.7 mg/dl (2.5-4.9); Potassium 3.2 mmol/L (3.5-5.1); Sodium 136 mmol/L (136-145)
[2023-09-01] MEDS ORDERED: POTASSIUM CHLORIDE CRTAB 20 MEQ TABCR PO STA ×2 (17:09→23:38)
[2023-09-01] MEDS ORDERED: VANCOMYCIN CONSULT ACTIVE PRN (17:10)
[2023-09-01] MEDS ORDERED: VANCOMYCIN HCL 1,000 MG in SODIUM CHLORIDE 0.9% 250 ML IV SCH (17:15)
[2023-09-01] MEDS ORDERED: VANCOMYCIN HCL 2,250 MG in SODIUM CHLORIDE 0.9% 500 ML IV ONE (17:30)
--- NOTE | 2023-09-01 18:26 | Hospitalist Progress Note ---
Date of Service September 01, 2023 Assessment & Plan (1) Weakness: Plan: 32-year-old female with past med significant for type 2 diabetes, polycystic ovaries, morbid obesity comes because of ongoing nausea and vomiting, weakness and fatigue for last 2 months. She vomits little bit about every other day .She was getting progressively short of breath. Fatigue and weak. Poor appetite. Last about 40 pounds in last 2 months. Denies any fevers. On and off pal pitations. No chest pain. And found to have tachycardia, leukocytosis, anemia and respiratory bio fire came back positive for enterorhinovirus and CT scan showing large ovarian mass. Weakness Enterorhinovirus Anemia Large ovarian mass PE Ct chest confirms pulmonary embolus within segmental and subsegmental branches of the left lower lobe pulmonary artery. Doppler of lower extremity showed no evidence of DVT Currently on IV heparin drip Hemoglobin dropped to 6.6 Denies any active signs of bleeding such as hematuria, hemoptysis, or hematochezia. Continue IV heparin drip for now while monitor closely for any active signs of bleeding If hemoglobin drops further, will hold on heparin drip Tachycardia Most likely due to anemia, PE Echo showed ejection fraction between 55 to 60%. Normal left ventricular systolic function Continue IV fluid and replace electrolyte Monitor closely in telemetry Entero/rhinovirus Biofire tested positive for Entero-/rhino Supportive care Droplet precautions Seems asymptomatic from the virus infection Iron deficiency anemia Hemoglobin 7.8 on admission, and dropped to 6.6 No obvious signs of bleeding FOBT pending vitamin B12 folate levels are normal Iron level 22, TIBC 197, transferrin 11 Type and cross PRBC and transfused 1 unit Will start on iron supplement continue monitor H&H Bacteremia Leukocytosis Blood culture positive for gram-positive cocci in clusters (Staph PCR detected) Urine culture pending WBC 23K on admission Procalcitonin negative Currently on IV Zosyn Will start on IV Vanco Will repeat blood culture Continue monitor CBC Will consult ID Large ovarian mass History of polycystic ovaries CT abdominal /pelvis:There is a complex probably cystic mass with eccentric solid components filling and distending the abdomen and pelvis, measuring 20.2 x 28 x 28.4 cm (volume 8.42 L). Trace surrounding free fluid in the pelvis. 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 ELEVATED MOTORMAN consulted Tumor marker for AFP, CA 199 and CA 825 pending As per SEPTIC TANK INSTALLER if patient will require surgical intervention, the surgery will be done at a tertiary center due to the large size of the mass Will need outpatient SEPTIC TANK INSTALLER follow-up Diabetes Possible euglycemic DKA a Elevated anion gap Most recent hemoglobin A1c 6.6 Received aggressive IV fluid Currently on insulin drip with D5 NS at 200 ml/hr Continue monitor BMP Will transition to subcu insulin once anion gap closed Pharmacy on board for glycemic management Electrolyte imbalance Potassium and phosphorus replaced Hypertension Continue losartan Continue monitor BP Morbid obesity DVT prophylaxis On Iiv heparin drip Disposition Telemetry floor Full code Admission and Anticipated Discharge Date Admission Date: August 31, 2023 Subjective Patient was seen and evaluated for follow-up Lying bed with no acute distress She vomited earlier after drinking water No blood noted in the vomit it was clear Hemoglobin dropped to 6.6 She denies any abdominal pain, bloody stool or hematuria Review of Systems Review of Systems: All systems reviewed & are unremarkable except as noted in Subjective Physical Exam Physical Exam: General- No acute distress Head- atraumatic Eyes- PERRL, EOMI, ENT- oropharynx clear Neck- supple, no JVD Lungs- clear to auscultation Heart- +tachycardia Abdomen- normal bowel sounds, soft, nontender Extremities- no calf tenderness Neuro- alert, oriented x 3; PERRL, EOMI; no facial palsy; no dysarthria Skin- warm & dry Results & Data Results & Data Vital Signs (Past 12 Hours) Vital Signs Temp Pulse Pulse Resp BP BP BP 09/01/23 17:37 106 H 09/01/23 15:42 36.8 C 112 H 22 116/81 09/01/23 14:44 114 H 09/01/23 11:35 12 131/80 09/01/23 11:24 09/01/23 10:35 36.5 C 117 H 19 114/76 09/01/23 10:05 36.6 C 120 H 24 120/82 09/01/23 09:50 130 H 24 100/74 09/01/23 09:30 36.5 C 124 H 26 H 136/94 09/01/23 07:10 121 H 24 190/118 H Pulse Ox Pulse Ox O2 Del Method O2 Del Method 09/01/23 17:37 09/01/23 15:42 94 Room Air 09/01/23 14:44 09/01/23 11:35 94 09/01/23 11:24 94 Room Air 09/01/23 10:35 99 09/01/23 10:05 97 09/01/23 09:50 97 09/01/23 09:30 97 09/01/23 07:10 96 Room Air
--- NOTE | 2023-09-01 20:54 | Pharmacy Report ---
Pharmacy Vanc AUC Short Note - Date of Service September 01, 2023 - Assessment & Plan Assessment 32 year old F receiving vancomycin for treatment of bacteremia. Day #1 of antimicrobial therapy: 09/01/23 Plan Vancomycin * Load: Vancomycin 2,250 mg IV once on 09/01/23 at 2020. * Maintenance: Vancomycin 1,250 mg IV q8h starting 09/02/23 at 0400. * AUC/KAYCEE is the preferred PK/PD target for vancomycin * AUC guided dosing is effective and associated with decreased risk of nephrotoxicity compared to traditional trough targets * Trough level of 14 mcg/mL is predicted to achieve target AUC/KAYCEE of 400-600 mg/L.hr and may be associated with a 9% risk of nephrotoxicity * Trough or random level ordered for: 09/02/23 at 1900. Pharmacy will continue to follow and will adjust dose/frequency as necessary. Thank you.
[2023-09-01 23:36] LABS: Anion Gap 8 (3-11); Blood Urea Nitrogen 6 mg/dl (6-23); Calcium 7.7 mg/dl (8.6-10.3); Carbon Dioxide 22 mmol/L (21-32); Chloride 105 mmol/L (98-107); Creatinine Clr Calc Pharmacy 225.6 ml/min; Est GFR (African American) > 150.0 ml/min; Est GFR (Non-African American) 135.5 ml/min; Glucose 143 mg/dl (70-99(Fasting)); Potassium 3.3 mmol/L (3.5-5.1); Sodium 135 mmol/L (136-145)
[2023-09-01] MEDS ORDERED: LANTUS PER UNIT CHARGE SC ONE (23:45)
[2023-09-02] MEDS: SODIUM CHLORIDE 0.9% 1,000 ML IV SCH ×2 (00:13→10:33)
[2023-09-02] MEDS: PIPERACILLIN/TAZOBACTAM 4.5 GM in DEXTROSE 5% MINI-B 100 ML IV SCH ×2 (00:16→08:19)
[2023-09-02] MEDS ORDERED: VANCOMYCIN HCL 1,250 MG in SODIUM CHLORIDE 0.9% 250 ML IV SCH (04:00)
[2023-09-02] MEDS: INSULIN ASPART PER UNIT CHARGE SC SCH ×5 (05:16→20:35)
[2023-09-02] MEDS: FERROUS SULFATE 325 MG TAB PO SCH ×2 (08:18→17:25)
[2023-09-02] MEDS: LOSARTAN POTASSIUM 25 MG TAB PO SCH (08:22)
[2023-09-02] MEDS: ESCITALOPRAM OXALATE 10 MG TAB PO SCH (08:23)
[2023-09-02 08:29] LABS: Creatinine Clr Calc Pharmacy 164.5 ml/min; Est GFR (African American) 141.6 ml/min; Est GFR (Non-African American) 122.1 ml/min
[2023-09-02 10:49] LABS: Albumin Globulin Ratio 0.7 (0.9-2); BUN Creatinine Ratio 10.3 (10-20); Bilirubin,Total 0.5 mg/dl (0.2-1.0); Calcium 7.9 mg/dl (8.6-10.3); Creatinine Clr Calc Pharmacy 142.7 ml/min; Est GFR (African American) 135.1 ml/min; Est GFR (Non-African American) 116.6 ml/min; Globulin 4.1 gm/dl (2.5-4.0); Magnesium 1.7 mg/dl (1.7-2.4); Phosphorus 2.6 mg/dl (2.5-4.9); Potassium 3.7 mmol/L (3.5-5.1); Total Protein 7.1 gm/dl (6.0-8.3)
[2023-09-02 10:51] LABS: ANTI-Xa, UFH(UnfractionatedHep < 0.10 IU/ml (0.3-0.7)
[2023-09-02 10:51] LABS: Basophils # (auto) 0.07 K/uL (0.00-0.20); Basophils % (auto) 0.4 %; Eosinophils # (auto) 0.15 K/uL (0.00-0.50); Eosinophils % (auto) 0.8 %; Hematocrit (blood only) 28.7 % (37.0-47.0); Hemoglobin 7.8 g/dl (12.0-16.0); Immature Granulocytes # (auto) 0.29 K/uL (0.01-0.20); Immature Granulocytes % (auto) 1.6 %; Lymphocytes # (auto) 1.48 K/uL (1.20-3.40); Mean Corpuscular Hemoglobin 20.3 pg (25.0-34.0); Mean Corpuscular Hgb Conc 27.2 g/dL (32.0-36.0); Mean Corpuscular Volume 74.5 fL (80.0-100.0); Mean Platelet Volume 8.3 fL (9.4-12.4); Monocytes # (auto) 1.08 K/uL (0.11-0.59); Monocytes % (auto) 5.8 %; Neutrophils # (auto) 15.49 K/uL (1.40-6.50); Neutrophils % (auto) 83.4 %; Platelet Count 539 K/uL (130-400); Polychromasia 1+; RDW Coefficient of Variation 20.5 % (11.5-14.5); RDW Standard Deviation 54.2 fL (36.4-46.3); Red Blood Count 3.85 M/uL (4.20-5.40); White Blood Count 18.56 K/ul (4.8-10.8)
[2023-09-02] MEDS ORDERED: ONDANSETRON INJ 2 MG/ML 2 ML VIAL IV PRN (10:53)
--- NOTE | 2023-09-02 10:54 | Pharmacy Report ---
Pharmacy Glycemic Short Note 2 - Date of Service September 02, 2023 - Glycemic Short BSG Results (Last 24 hours): 09/01/23 09/01/23 09/01/23 11:03 11:21 12:11 Glucose 156 H POC Glucose 174 H 171 H 09/01/23 09/01/23 09/01/23 13:04 14:01 15:03 Glucose POC Glucose 145 H 150 H 138 H 09/01/23 09/01/23 09/01/23 15:41 16:05 17:56 Glucose 129 H POC Glucose 139 H 154 H 09/01/23 09/01/23 09/01/23 19:00 19:59 22:22 Glucose POC Glucose 139 H 137 H 147 H 09/01/23 09/01/23 09/02/23 22:38 23:08 05:09 Glucose 143 H POC Glucose 153 H 170 H 09/02/23 07:41 Glucose POC Glucose 158 H OUTPATIENT ANTIDIABETIC REGIMEN: * Empaglifozin 25 mg PO daily * Metformin 1 g PO BID * HbA1C: 6.6% (09/01/23) ASSESSMENT: 09/02: * Patient was transitioned off the drip around midnight when gap was closed. Received 65 units of insulin from the drip over 16 hours. Received 15 units of basal at time of drip transition. Novolog was started based on weight/stress of 1-2. * Fasting BSG was 158 mg/dL this AM. Patient remains on heparin drip as well as vancomycin and Zosyn. Ordered and tolerating a T2DM diet. * Tightened CF slightly today as patient did not correct to goal overnight. After seeing lunch BSG, tightened CR as well. Will also give an increased dose of Lantus with lunch today with hopes of basal once daily in the morning starting tomorrow. 09/01: * Pt is a 32 year old female with a history of DM2 admitted in the setting of weakness, N/V, and weight loss. Found to have new PE and ovarian mass. Possible euglycemic DKA. Initial labs: BSG-168, AG-17, Bicarb-19. Insulin drip initiated per DKA protocol at 0.05 unit/kg/hr given BSG within goal. * Dextrose-containing IVF started with insulin drip to keep BSG within goal range. Diet ordered. * Continue insulin drip per DKA protocol until AG <12, bicarb >/=15. Consider Lantus 15 units SQ X 1 when criteria are met for transition to SQ and overlap with drip X 2 hours if drip not paused per protocol. Novolog ACHS with a carb ratio of 10gm/unit while drip running and add correction of 25-30mg/dL/unit once drip is off. PLAN FOR INPATIENT GLYCEMIC CONTROL: * Hold outpatient oral diabetes medications * Basal insulin * Lantus 20 units SC x 1 at lunchtime * Reassess basal dose tomorrow * Bolus insulin * NovoLog per scale ACHS or Q6hrs while NPO * Goal Range: Low 110 mg/dL - High 140 mg/dL * Correction Factor: 20 mg/dL/unit * Nutritional / Prandial insulin per carb ratio of 1 unit per 6 grams CHO consumed
[2023-09-02] MEDS ORDERED: LANTUS PER UNIT CHARGE SC ONE (12:30)
--- NOTE | 2023-09-02 12:54 | Infectious Disease Consult ---
Date of Service September 02, 2023 Telehealth Information I performed this visit using a real-time telehealth connection between my location and the patients location ([facility]). After connecting through interactive tele-video, patient was identified by name and date of and/or wristband check.Patient (or authorized healthcare sales representative cash registers) was informed that this was a telemedicine visit and it was being conducted confidentially over secure lines. My office door was closed and no one else was present in the room with me.Patient (or authorized healthcare sales representative cash registers) provided consent to proceed with the visit, expressed an understanding of privacy and security of the telemedicine visit, and gave permission to have a hospital sales representative cash registers in the room in order to assist with the visit and to conduct portions of the visit, as needed. I informed the patient (or authorized healthcare sales representative cash registers) that I reviewed their record and presented the opportunity for them to ask any questions regarding the visit today. The patient agreed to participate. Assessment & Plan (1) Metabolic acidosis: (2) Anemia: (3) Ovarian cystic mass: (4) Weakness: (5) Nausea & vomiting: Plan 32-year-old female with PMHx of type 2 diabetes, polycystic ovaries, morbid obesity who presented to [facility] on 08/31/2023 with nausea and vomiting, weakness and fatigue for last 2 month, chest pain and SOB. On admission, pt found to have tachycardia, leukocytosis, anemia and respiratory bio fire came back positive for entero-rhinovirus. Pt had CTA chest/abd/pelvis which showed PE and large pelvis mass (ovarian). Pt started on IV heparin for PE treatment. Pt has hx of Ovarian cysts. SPAR CAP BEVELER consulted and US done at bedside showing complex cystic lesion concern for malignancy. Infectious work up showed blood cultures with Coag Neg Staph in 1/4 bottles. SPAR CAP BEVELER ordering ovarian cancer markers and proceeding with work up. Patient empirically put on Zosyn IV and Vancomycin IV. Plan: - Blood cultures are consistent with contamination. it is a better assumption that this large complex ovarian mass, PE, and viral infection are the causes of pt's leukocytosis and initial fever. - Recommend biopsy of Ovarian Mass. - Blood culture taken today are pending, if any changes with these let me know. - Recommend stopping IV Zosyn and Vancomycin as blood cultures are not consistent with bacteremia. - we will sign off, please call or tiger text if there are any issues, concerns, or questions. History of Present Illness History of Present Illness Reason for consult: Bacteremia 32-year-old female with PMHx of type 2 diabetes, polycystic ovaries, morbid obesity who presented to [facility] on 08/31/2023 with nausea and vomiting, weakness and fatigue for last 2 month, chest pain and SOB. On admission, pt found to have tachycardia, leukocytosis, anemia and respiratory bio fire came back positive for entero-rhinovirus. Pt had CTA chest/abd/pelvis which showed PE and large pelvis mass (ovarian). Pt started on IV heparin for PE treatment. Pt has hx of Ovarian cysts. SPAR CAP BEVELER consulted and US done at bedside showing complex cystic lesion concern for malignancy. Infectious work up showed blood cultures with Coag Neg Staph in 1/4 bottles. SPAR CAP BEVELER ordering ovarian cancer markers and proceeding with work up. Patient empirically put on Zosyn IV and Vancomycin IV. ID consulted for Bacteremia. Allergies Allergy/AdvReac Type Severity Reaction Status Date / Time exenatide [From Bydureon] Allergy Rash Verified 08/31/23 20:41 Home Medications Medication Instructions Recorded Confirmed Type empagliflozin 25 mg tablet 25 mg PO DAILY 05/28/20 08/31/23 History (Jardiance) losartan 25 mg tablet 25 mg PO DAILY 05/28/20 08/31/23 History metformin 1,000 mg tablet 1,000 mg PO BID 05/28/20 08/31/23 History escitalopram oxalate 10 mg tablet 10 mg PO QAM 08/31/23 08/31/23 History Patient History Social History Smoking Status: Never smoker Hx Alcohol Use: No Hx Substance Use: No Preferred Language: Indonesian Communication Ability: Effective Funeral Car Driver Required: No Beliefs That Will Affect Care: None Current Living Situation: Alone Other Information That Helps Us Care for You: No Feels Safe at Home: Yes Safety Concerns: Feels Safe At This Time Assistive Devices: None Review of Systems all ROS reviewed and negative. Physical Exam Seen Via Telemedicine, deferred Results & Data Vital Signs (Past 12 Hours) Vital Signs Temp Pulse Resp BP BP Pulse Ox O2 Del Method 09/02/23 07:30 36.8 C 96 H 18 121/63 98 Room Air 09/02/23 07:30 36.7 C 97 H 20 108/76 97 Room Air 09/02/23 02:51 36.6 C 100 H 18 124/83 96 Room Air Laboratory Results Blood cultures on 08/31/2023 - / pos for Coag Neg Staph --> CONSISTENT WITH CONTAMINATION AND NOT WITH TRUE INFECTION. Blood Culture Aerobic Preliminary 09/02/23-1123 Organism 1 Coag neg staph not lugdunensis Sens No Sensitivities to Follow Blood Culture PCR Panel If viewing in EMR, results available under LAB Serology tab. One set of two positive. Isolation does not necessarily mean infection. No susceptibility tests performed. Contact microbiology laboratory ([phone]) if further studies are indicated. Phoned positive Blood Culture Gram Stain report to Selene Hung on 09/01/23 at 1603 [place] [id number]. [place] [id number]. Blood Culture Anaerobic Preliminary 09/01/23-2100 No growth in Anaerobic bottle after 24 hours. Diagnostic Findings CTA chest/abd/pelvis on 08/31/[address] IMPRESSION: 1[address] The CT angiogram confirms pulmonary embolus within segmental and subsegmental branches of the left lower lobe pulmonary artery. 2. Trace right pleural effusion. 3. There is no airspace consolidation typical for pneumonia. 4. There is no evidence of intrathoracic metastatic disease. 5. A large solid and cystic ovarian mass lesion is partially visualized in the upper abdomen. An ovarian neoplasm remains the diagnosis of exclusion. Medications Administered Zosyn IV Vancomycin IV (3) Ovarian cystic mass Laterality: unspecified laterality Qualified Code(s): N83.209 - Unspecified ovarian cyst, unspecified side
--- NOTE | 2023-09-02 13:59 | Electrocardiogram Report ---
Test Reason : Blood Pressure : / mmHG Vent. Rate : 109 BPM Atrial Rate : 109 BPM P-R Int : 156 ms QRS Dur : 078 ms QT Int : 352 ms P-R-T Axes : -15 -08 008 degrees QTc Int : 474 ms Sinus tachycardia Possible Anterolateral infarct (cited on or before 01-SEP-2023) Abnormal ECG When compared with ECG of 31-AUG-2023 18:51, Questionable change in initial forces of Lateral leads Inverted T waves have replaced nonspecific T wave abnormality in Inferior leads Confirmed by Jimi Lepe ([id number]) on 09/02/2023 1:59:20 PM Referred By: REFERRED SELF Confirmed By:Jimi Lepe
[2023-09-02] MEDS ORDERED: STAT IV/IM STA (14:03)
--- NOTE | 2023-09-02 15:30 | Hospitalist Progress Note ---
Date of Service September 02, 2023 Assessment & Plan (1) Weakness: Plan: 32-year-old female admitted with PE in the setting of possible ovarian malignancy, anemia requiring transfusion, entero/rhinovirus infection and possible bacteremia. PE CT chest with noted pulmonary embolus within segmental and subsegmental branches of the left lower lobe pulmonary artery. Doppler of lower extremity showed no evidence of DVT IV heparin transitioned to PO Eliquis on 09/02- continue to monitor h/h Denies any active signs of bleeding such as hematuria, hemoptysis, or hematochezia. Hold Eliquis if h/h notes need for transfusion PE likely provoked in the setting of possible ovarian malignancy/mass (see below) Anemia Hemoglobin 7.8 on admission Required transfusion of 1U of pRBC on 09/01 for hgb of 6.6 Vitamin B12, folate levels are normal Iron level 22, TIBC 197, transferrin 11 On iron supplements Continue to monitor H&H and transfuse as needed for hgb <7 or 8 + symptoms Entero/rhinovirus Infection Biofire positive for Entero/rhino infection Supportive care Droplet precautions Continue to monitor Bacteremia Pt with chronic leukocytosis One Blood culture positive for gram-positive cocci in clusters (Staph PCR detected) Growing coag negative staph Repeat blood Cx pending. Urine culture with no significant growth Procalcitonin negative Was on IV Vanc and Zosyn ID consult on 09/03- appreciate recs -d/c Vanc and Zosyn as blood cx likely contaminant -biopsy ovarian mass -follow repeat blood cx Tachycardia EKG on 09/02 with sinus tachycardia Echo showed an ejection fraction between 55 to 60%. Normal left ventricular systolic function Likely Reflex/physiologic in the setting of PE, anemia Continue to monitor on telemetry Consider beta gregg, cards consult for persistence Large ovarian mass History of polycystic ovaries CT abdominal /pelvis:There is a complex probably cystic mass with eccentric solid components filling and distending the abdomen and pelvis, measuring 20.2 x 28 x 28.4 cm (volume 8.42 L) Suspicious for an ovarian neoplasm. SALES BROKER consulted- appreciate recs -recommending further evaluation/biopsy of mass at tertiary care center if surgical care needed due to large size of mass -Tumor markers for AFP, CA 199 and CA 825 pending Outpatient [employer]ES [employer]ER follow-up DMII Hyperglycemia Most recent hemoglobin A1c 6.6 Pharmacy on board for glycemic management- appreciate recs Electrolyte imbalance Replete as needed Hypertension Continue losartan Continue monitor BP Mood Continue lexapro Diet: DMII/HH DVT prophylaxis: On Eliquis CODE STATUS: Full code Dispo: PT recommending return home on discharge Admission and Anticipated Discharge Date Admission Date: August 31, 2023 Subjective Pt seen sitting up in bed. Stated that she was having nausea, otherwise felt the same. Later notified by nursing that pt was in tears. Concerned about why she was still here. Review of Systems Review of Systems: All systems reviewed & are unremarkable except as noted in Subjective Physical Exam Physical Exam: General: Alert, oriented. Psych: Appropriate mood and affect Neuro: No gross deficits HEENT: NC/AT CV: RRR, Normal s1, s2. No murmurs appreciated Resp: Breath sounds coarse bilaterally, no increased effort of breathing. Abdomen: nontender Extremities: edema in lower extremities bilaterally. Results & Data Results & Data Vital Signs (Past 12 Hours) Vital Signs Temp Pulse Resp BP BP Pulse Ox O2 Del Method 09/02/23 11:30 36.6 C 97 H 16 118/68 97 Room Air 09/02/23 07:30 36.8 C 96 H 18 121/63 98 Room Air 09/02/23 07:30 36.7 C 97 H 20 108/76 97 Room Air
[2023-09-02] MEDS ORDERED: VANCOMYCIN HCL 1,500 MG in SODIUM CHLORIDE 0.9% 500 ML IV SCH (16:00)
[2023-09-02] MEDS: CALCIUM GLUCONATE 10% 1,000 MG in SODIUM CHLOR 0.9% MINI-B 50 ML IV SCH ×2 (16:34→16:59)
[2023-09-02] MEDS: APIXABAN 5 MG TABLET PO SCH ×2 (16:36→22:44)
[2023-09-02] MEDS ORDERED: VANCOMYCIN LEVEL ONE (19:00)
[2023-09-02 23:11] LABS: Hematocrit (blood only) 26.7 % (37.0-47.0); Hemoglobin 7.4 g/dl (12.0-16.0)
[2023-09-03 07:31] LABS: Hematocrit (blood only) 27.7 % (37.0-47.0); Hemoglobin 7.5 g/dl (12.0-16.0); Mean Corpuscular Hemoglobin 20.5 pg (25.0-34.0); Mean Corpuscular Hgb Conc 27.1 g/dL (32.0-36.0); Mean Corpuscular Volume 75.9 fL (80.0-100.0); Mean Platelet Volume 8.5 fL (9.4-12.4); Platelet Count 468 K/uL (130-400); RDW Coefficient of Variation 20.3 % (11.5-14.5); RDW Standard Deviation 55.8 fL (36.4-46.3); Red Blood Count 3.65 M/uL (4.20-5.40); White Blood Count 14.59 K/ul (4.8-10.8)
[2023-09-03 07:33] LABS: Albumin Globulin Ratio 0.8 (0.9-2); Albumin Level 2.8 gm/dl (3.4-5.0); BUN Creatinine Ratio 6.7 (10-20); Bilirubin,Total 0.5 mg/dl (0.2-1.0); Calcium 8.6 mg/dl (8.6-10.3); Creatinine Clr Calc Pharmacy 92.4 ml/min; Est GFR (Non-African American) 70.7 ml/min; Globulin 3.6 gm/dl (2.5-4.0); Magnesium 1.7 mg/dl (1.7-2.4); Phosphorus 3.8 mg/dl (2.5-4.9); Potassium 3.7 mmol/L (3.5-5.1); Total Protein 6.4 gm/dl (6.0-8.3)
[2023-09-03 07:36] LABS: Anisocytosis Present; Basophils # (auto) 0.06 K/uL (0.00-0.20); Basophils % (auto) 0.4 %; Eosinophils # (auto) 0.15 K/uL (0.00-0.50); Hypochromasia Present; Immature Granulocytes # (auto) 0.15 K/uL (0.01-0.20); Lymphocytes # (auto) 1.22 K/uL (1.20-3.40); Lymphocytes % (auto) 8.4 %; Monocytes # (auto) 1.01 K/uL (0.11-0.59); Monocytes % (auto) 6.9 %; Neutrophils % (auto) 82.3 %
--- NOTE | 2023-09-03 08:14 | Electrocardiogram Report ---
Test Reason : Blood Pressure : / mmHG Vent. Rate : 105 BPM Atrial Rate : 105 BPM P-R Int : 144 ms QRS Dur : 078 ms QT Int : 346 ms P-R-T Axes : 015 017 007 degrees QTc Int : 457 ms Sinus tachycardia Low voltage QRS Borderline ECG When compared with ECG of 01-SEP-2023 17:07, Borderline criteria for Anterolateral infarct are no longer Present Confirmed by Steven Lobato ([id number]) on 09/03/2023 8:14:12 AM Referred By: REFERRED SELF Confirmed By:Steven Lobato
[2023-09-03] MEDS ORDERED: LANTUS PER UNIT CHARGE SC SCH (09:00)
[2023-09-03] MEDS: INSULIN ASPART PER UNIT CHARGE SC SCH ×4 (09:27→21:31)
[2023-09-03] MEDS: APIXABAN 5 MG TABLET PO SCH ×2 (10:00→21:34)
[2023-09-03] MEDS: FERROUS SULFATE 325 MG TAB PO SCH ×2 (10:01→17:22)
[2023-09-03] MEDS: ESCITALOPRAM OXALATE 10 MG TAB PO SCH (10:01)
[2023-09-03] MEDS: LOSARTAN POTASSIUM 25 MG TAB PO SCH (10:02)
[2023-09-03 12:13] LABS: AFP Tumor Marker Serum 2.7 ng/mL
--- NOTE | 2023-09-03 12:33 | Hospitalist Progress Note ---
Date of Service September 03, 2023 Assessment & Plan (1) Weakness: (2) Pulmonary embolism: (3) Upper respiratory infection, viral: (4) Anemia: (5) Ovarian cystic mass: (6) Nausea & vomiting: Plan 32-year-old female admitted with PE in the setting of possible ovarian malignan cy, anemia requiring transfusion, entero/rhinovirus infection and possible bacteremia. PE CT chest with noted pulmonary embolus within segmental and subsegmental branches of the left lower lobe pulmonary artery. Doppler of lower extremity showed no evidence of DVT IV heparin transitioned to PO Eliquis on 09/02- continue to monitor h/h Denies any active signs of bleeding such as hematuria, hemoptysis, or hematochezia. Hold Eliquis if h/h notes need for transfusion PE likely provoked in the setting of possible ovarian malignancy/mass (see below) Pulmonology consult placed on 09/02- appreciate recs -recommending continued anticoagulation as long as pt has cancer -pt stable for discharge from pulm standpoint Anemia Hemoglobin 7.8 on admission Required transfusion of 1U of pRBC on 09/01 for hgb of 6.6 Vitamin B12, folate levels are normal Iron level 22, TIBC 197, transferrin 11 On iron supplements Continue to monitor H&H and transfuse as needed for hgb <7 or 8 and lower + symptoms Entero/rhinovirus Infection Biofire positive for Entero/rhino infection Supportive care Droplet precautions Continue to monitor Bacteremia Pt with chronic leukocytosis One Blood culture positive for gram-positive cocci in clusters (Staph PCR detected) Growing coag negative staph Repeat blood Cx pending. Urine culture with no significant growth Procalcitonin negative Was on IV Vanc and Zosyn ID consult on 09/03- appreciate recs -d/c Vanc and Zosyn as blood cx likely contaminant -biopsy ovarian mass -follow repeat blood cx Repeat blood cultures with no growth to date Tachycardia EKG on 09/02 with sinus tachycardia Echo showed an ejection fraction between 55 to 60%. Normal left ventricular systolic function Likely Reflex/physiologic in the setting of PE, anemia Continue to monitor on telemetry Consider beta gregg, cards consult for persistence Large ovarian mass History of polycystic ovaries CT abdominal /pelvis:There is a complex probably cystic mass with eccentric solid components filling and distending the abdomen and pelvis, measuring 20.2 x 28 x 28.4 cm (volume 8.42 L) Suspicious for an ovarian neoplasm. VENDING MACHINE MECHANIC consulted- appreciate recs -recommending further evaluation/biopsy of mass at tertiary care center if surgical care needed due to large size of mass -Tumor markers for AFP, CA 199, and CA 125 ordered -Ca 125 elevated Outpatient VENDING MACHINE MECHANIC follow-up DMII Hyperglycemia Most recent hemoglobin A1c 6.6 Pharmacy on board for glycemic management- appreciate recs Electrolyte imbalance Replete as needed Hypertension Continue losartan Continue to monitor BP Mood Continue lexapro Diet: DMII/HH DVT prophylaxis: On Eliquis CODE STATUS: Full code Dispo: PT recommending return home on discharge Admission and Anticipated Discharge Date Admission Date: August 31, 2023 Subjective Pt seen sitting up in bed. Stated that she felt fine, asking about discharge. Noted that she was no longer SOB or dizzy. Review of Systems Review of Systems: All systems reviewed & are unremarkable except as noted in Subjective Physical Exam Physical Exam: General: Alert, oriented. Psych: Appropriate mood and affect Neuro: No gross deficits HEENT: NC/AT CV: RRR, Normal s1, s2. No murmurs appreciated Resp: Breath sounds coarse bilaterally, no increased effort of breathing. Abdomen: nontender Extremities: edema in lower extremities bilaterally. Results & Data Results & Data Vital Signs (Past 12 Hours) Vital Signs Temp Pulse Pulse Resp BP Pulse Ox O2 Del Method 09/03/23 07:30 36.8 C 100 H 16 121/85 97 Room Air 09/03/23 07:24 109 H 09/03/23 02:50 36.9 C 109 H 18 115/76 96 Room Air (5) Ovarian cystic mass Laterality: unspecified laterality Qualified Code(s): N83.209 - Unspecified ovarian cyst, unspecified side
--- NOTE | 2023-09-03 15:02 | Pulmonary Consultation ---
Date of Consultation September 03, 2023 Assessment & Plan (1) Pulmonary embolism: (2) Ovarian cystic mass: Laterality: unspecified laterality Qualified Code(s): N83.209 - Unspecified ovarian cyst, unspecified side Plan Impression: 32-year-old female with large complex intra-abdominal mass potential ovarian in etiology as well as subsegmental PEs. She is hemodynamically stable. Venous ultrasound of the lower extremities showed no significant clot. Recommendations: 1. Segmental/subsegmental PE: Agree with anticoagulation. As this occurred in the setting of a potential malignancy/intra-abdominal mass, would recommend indefinite anticoagulation until the intra-abdominal process is fully characterized. If this was in the setting of her malignancy, anticoagulation throughout the course of the malignancy would be recommended as this would be recognized as a hypercoagulable disorder. Given the intra-abdominal process, the patient is not a candidate for alternative therapy such as IVC filter which would also necessitate long-term anticoagulation. DOAC would be an appropriate therapy for this patient. She had no evidence of clot in the lower extremities and echocardiogram showed normal right ventricular systolic function and size with no evidence of pulmonary hypertension. Troponin was negative. She may be dismissed from the hospital from a PE perspective. 2. Complex intra-abdominal mass likely ovarian in etiology. Patient CA125 was elevated at 306. aFP negative. Recommend evaluation by [facility] oncology section and definitive pathology. If the patient requires heme-onc follow-up, would defer anticoagulation decisions to them. From a pulmonary perspective, the patient may be dismissed from the hospital. Pulmonary will sign off. Feel free to contact us with questions or concerns History of Present Illness Attending Physician: Ramya Small MD History of Present Illness Asked by hospitalist to assist in evaluation management of this patient with pulmonary embolism. History is obtained from discussion with the patient as well as review the electronic medical record patient is a 32-year-old female non-smoker with a history of polycystic ovarian syndrome and heavy menstrual cycles who was brought to the emergency room with nausea vomiting weakness and fatigue. She also had progressive shortness of breath. She is lost 40 pounds in the last 2 months. She was found to be tachycardic with leukocytosis as well as anemic. BioFire positive for enterovirus. CT scan was performed which revealed a large ovarian mass. CT angiogram also demonstrated subsegmental PEs. The patient was seen by oncologic gynecology who recommended the patient be transferred to a tertiary care center with [facility] oncology availability. She was transitioned off of heparin to Eliquis and pulmonary was consulted for recommendations regarding anticoagulation. Reportedly the patient's ovarian/complex intra-abdominal mass is to be worked up as an outpatient. The patient does not report any significant shortness of breath currently. She is not experiencing any chest pain or palpitations. She denies any syncope or presyncope. No significant lower extremity edema. Patient denies any prior history of PE. Her does have a history of clotting disorders. Mother apparently was diagnosed with clotting disorders. Allergies Allergy/AdvReac Type Severity Reaction Status Date / Time exenatide [From [email or web address]] Allergy Rash Verified 08/31/23 20:41 Home Medications Medication Instructions Recorded Confirmed Type empagliflozin 25 mg tablet 25 mg PO DAILY 05/28/20 08/31/23 History (Jardiance) losartan 25 mg tablet 25 mg PO DAILY 05/28/20 08/31/23 History metformin 1,000 mg tablet 1,000 mg PO BID 05/28/20 08/31/23 History escitalopram oxalate 10 mg tablet 10 mg PO QAM 08/31/23 08/31/23 History Patient History Social History Smoking Status: Never smoker Hx Alcohol Use: No Hx Substance Use: No Preferred Language: Burkinan Communication Ability: Effective Heavy Equipment Engine Mechanic Required: No Beliefs That Will Affect Care: None Current Living Situation: Alone Other Information That Helps Us Care for You: No Feels Safe at Home: Yes Safety Concerns: Feels Safe At This Time Assistive Devices: None Review of Systems Review of Systems: All systems reviewed & are unremarkable except as noted in Subjective Physical Exam Constitutional: WD/WN, vitals as above Neck: trachea midline, no thyromegaly Respiratory: normal respiratory effort, lungs clear to auscultation Cardiovascular: Rate/Rhythm: + tachycardic Heart Sounds: normal S1 and normal S2; no murmur Extremities: no edema Gastrointestinal (Abdomen): normal bowel sounds, soft, nontender, no hepatosplenomegaly Musculoskeletal: Extremities: extremities normal to inspection Skin: no rashes, warm and dry Neurologic: Nonfocal exam Lymphatic: no cervical lymphadenopathy Results & Data Results & Data Vital Signs (Past 12 Hours) Vital Signs Temp Pulse Pulse Resp BP Pulse Ox O2 Del Method 09/03/23 11:30 37.0 C 114 H 18 118/69 99 Room Air 09/03/23 07:30 36.8 C 100 H 16 121/85 97 Room Air 09/03/23 07:24 109 H Critical Care Results & Data Vital Signs (Past 12 Hours) Vital Signs Temp Pulse Pulse Resp BP Pulse Ox O2 Del Method 09/03/23 11:30 37.0 C 114 H 18 118/69 99 Room Air 09/03/23 07:30 36.8 C 100 H 16 121/85 97 Room Air 09/03/23 07:24 109 H Lab & Micro Results (Past 24 Hours) RBC 3.65 M/uL (4.20-5.40) L 09/03/23 WBC 14.59 K/ul (4.8-10.8) H 09/03/23 Hgb 7.5 g/dl (12.0-16.0) L 09/03/23 Hct 27.7 % (37.0-47.0) L 09/03/23 MCV 75.9 fL (80.0-100.0) L 09/03/23 MCH 20.5 pg (25.0-34.0) L 09/03/23 MCHC 27.1 g/dL (32.0-36.0) L 09/03/23 RDW Standard Deviation 55.8 fL (36.4-46.3) H 09/03/23 RDW Coefficient of Variation 20.3 % (11.5-14.5) H 09/03/23 Plt Count 468 K/uL (130-400) H 09/03/23 MPV 8.5 fL (9.4-12.4) L 09/03/23 Neutrophils (%) (Auto) 82.3 % 09/03/23 Lymphocytes (%) (Auto) 8.4 % 09/03/23 Monocytes # (Auto) 1.01 K/uL (0.11-0.59) H 09/03/23 Eosinophils # (Auto) 0.15 K/uL (0.00-0.50) 09/03/23 Immature Granulocyte % (Auto) 1.0 % 09/03/23 Neutrophils # (Auto) 12.00 K/uL (1.40-6.50) H 09/03/23 Lymphocytes # (Auto) 1.22 K/uL (1.20-3.40) 09/03/23 Monocytes # (Auto) 1.01 K/uL (0.11-0.59) H 09/03/23 Eosinophils # (Auto) 0.15 K/uL (0.00-0.50) 09/03/23 Basophils # (Auto) 0.06 K/uL (0.00-0.20) 09/03/23 Immature Granulocyte # (Auto) 0.15 K/uL (0.01-0.20) 3 Hypochromasia Present 09/03/23 Anisocytosis Present 09/03/23 Na 140 mmol/L (136-145) 09/03/23 K 3.7 mmol/L (3.5-5.1) 09/03/23 Cl 110 mmol/L (98-107) H 09/03/23 CO2 22 mmol/L (21-32) 09/03/23 Anion Gap 8 (3-11) 09/03/23 BUN 7 mg/dl (6-23) 09/03/23 Creatinine 1.05 mg/dl (0.6-1.2) 09/03/23 Estimated GFR ( Amer) 82.0 ml/min 09/03/23 Estimated GFR (Non-Af Amer) 70.7 ml/min 09/03/23 BUN/Creatinine Ratio 6.7 (10-20) L 09/03/23 Glu 117 mg/dl (70-99(Fasting)) H 09/03/23 Ca 8.6 mg/dl (8.6-10.3) 09/03/23 Phosphorus Level 3.8 mg/dl (2.5-4.9) 09/03/23 Total Bilirubin 0.5 mg/dl (0.2-1.0) 09/03/23 AST 12 U/L (13-39) L 09/03/23 ALT 3 U/L (7-52) L 09/03/23 Alkaline Phosphatase 101 U/L (34-104) 09/03/23 TP 6.4 gm/dl (6.0-8.3) 09/03/23 Albumin 2.8 gm/dl (3.4-5.0) L 09/03/23 Globulin 3.6 gm/dl (2.5-4.0) 09/03/23 Albumin/Globulin Ratio 0.8 (0.9-2) L 09/03/23 Mg 1.7 mg/dl (1.7-2.4) 09/03/23 06:42 Calcium Level 8.6 mg/dl (8.6-10.3) 09/03/23 06:42 Ionized Calcium 1.17 mmol/L (1.12-1.32) 09/03/23 06:42 Microbiology 09/02/23 07:44 Aerobic Blood Culture - Preliminary Blood No growth in Aerobic bottle after 24 hours. Anaerobic Blood Culture - Preliminary No growth in Anaerobic bottle after 24 hours. 09/02/23 07:33 Aerobic Blood Culture - Preliminary Blood No growth in Aerobic bottle after 24 hours. Anaerobic Blood Culture - Preliminary No growth in Anaerobic bottle after 24 hours. 08/31/23 20:23 Aerobic Blood Culture - Preliminary Blood No growth in Aerobic bottle after 48 hours. Anaerobic Blood Culture - Preliminary No growth in Anaerobic bottle after 48 hours. 08/31/23 20:23 Aerobic Blood Culture - Preliminary Blood Coag neg staph not lugdunensis Anaerobic Blood Culture - Preliminary No growth in Anaerobic bottle after 48 hours. I & O Totals 24 Hours 09/02/23 09/03/23 09/04/23 06:59 06:59 06:59 Intake Total 6629.493 / 6629.493 3384.167 / 3384.167 Balance 6629.493 / 6629.493 3384.167 / 3384.167 Cumulative 08/31/23 18:38 thru 09/03/23 05:55 Intake Total 03391.660 Balance 61100.660 RT Ventilator Mngmt (Last Documented) Ventilator Ordered Settings Respiratory Rate 18 09/03/23 11:30 Ventilator - PT Measurements Respiratory Rate 18 PG Care Time/CCT Total # of Minutes Spent Total Time Spent with Patient: Total time spent is greater than 50% in coordination of care (as documented) at patient's floor/unit and/or counseling patient: Coding Level of Care Code 33950 IN/OBS CONSULT LVL 4,60M Diagnoses Pulmonary embolism I26.99 Cyst of ovary, unspecified laterality N83.209 Laterality: unspecified laterality
[2023-09-03 20:52] LABS: Hematocrit (blood only) 29.2 % (37.0-47.0)
[2023-09-04] MEDS ORDERED: VANCOMYCIN LEVEL ONE (03:30)
[2023-09-04 07:30] LABS: Hematocrit (blood only) 29.2 % (37.0-47.0); Hemoglobin 7.8 g/dl (12.0-16.0); Mean Corpuscular Hemoglobin 20.3 pg (25.0-34.0); Mean Corpuscular Hgb Conc 26.7 g/dL (32.0-36.0); Mean Platelet Volume 8.5 fL (9.4-12.4); Platelet Count 436 K/uL (130-400); RDW Coefficient of Variation 20.7 % (11.5-14.5); RDW Standard Deviation 57.1 fL (36.4-46.3); Red Blood Count 3.84 M/uL (4.20-5.40)
[2023-09-04 07:53] LABS: Albumin Globulin Ratio 0.8 (0.9-2); Albumin Level 2.9 gm/dl (3.4-5.0); BUN Creatinine Ratio 5.7 (10-20); Bilirubin,Total 0.4 mg/dl (0.2-1.0); Calcium 8.7 mg/dl (8.6-10.3); Creatinine Clr Calc Pharmacy 80.6 ml/min; Est GFR (African American) 67.7 ml/min; Est GFR (Non-African American) 58.4 ml/min; Globulin 3.6 gm/dl (2.5-4.0); Magnesium 1.8 mg/dl (1.7-2.4); Phosphorus 3.7 mg/dl (2.5-4.9); Potassium 3.5 mmol/L (3.5-5.1); Total Protein 6.5 gm/dl (6.0-8.3)
[2023-09-04 08:00] LABS: Anisocytosis Present; Basophils # (auto) 0.04 K/uL (0.00-0.20); Basophils % (auto) 0.3 %; Eosinophils # (auto) 0.12 K/uL (0.00-0.50); Immature Granulocytes # (auto) 0.11 K/uL (0.01-0.20); Immature Granulocytes % (auto) 0.9 %; Lymphocytes # (auto) 1.47 K/uL (1.20-3.40); Monocytes # (auto) 1.09 K/uL (0.11-0.59); Monocytes % (auto) 8.9 %; Neutrophils # (auto) 9.47 K/uL (1.40-6.50); Neutrophils % (auto) 76.9 %; Polychromasia 1+
[2023-09-04] MEDS ORDERED: LANTUS PER UNIT CHARGE SC SCH (09:00)
[2023-09-04] MEDS: INSULIN ASPART PER UNIT CHARGE SC SCH ×3 (09:26→17:23)
[2023-09-04] MEDS: FERROUS SULFATE 325 MG TAB PO SCH ×2 (09:41→17:55)
[2023-09-04] MEDS: LOSARTAN POTASSIUM 25 MG TAB PO SCH (09:46)
[2023-09-04] MEDS: ESCITALOPRAM OXALATE 10 MG TAB PO SCH (09:46)
--- NOTE | 2023-09-04 10:10 | Pharmacy Report ---
Pharmacy Glycemic Short Note 2 - Date of Service September 04, 2023 - Glycemic Short BSG Results (Last 24 hours): 09/03/23 09/03/23 09/03/23 11:28 16:35 20:36 Glucose POC Glucose 149 H 107 H 115 H 09/04/23 09/04/23 06:40 07:21 Glucose 103 H POC Glucose 113 H OUTPATIENT ANTIDIABETIC REGIMEN: * Empaglifozin 25 mg PO daily * Metformin 1 g PO BID * HbA1C: 6.6% (09/01/23) ASSESSMENT: 09/04: * Patient received total 38 units of insulin yesterday; 25 units basal and 13 units bolus. BSGs yesterday were 960-600-627-115 mg/dl. * Fasting BSG today = 103 mg/dl. Reduced basal dose to 20 units this AM to allow for a more even split between basal and bolus insulin doses per day. * Post-prandial BSGs at goal. Continued Novolog parameters the same. 09/02: * Patient was transitioned off the drip around midnight when gap was closed. Received 65 units of insulin from the drip over 16 hours. Received 15 units of basal at time of drip transition. Novolog was started based on weight/stress of 1-2. * Fasting BSG was 158 mg/dL this AM. Patient remains on heparin drip as well as vancomycin and Zosyn. Ordered and tolerating a T2DM diet. * Tightened CF slightly today as patient did not correct to goal overnight. After seeing lunch BSG, tightened CR as well. Will also give an increased dose of Lantus with lunch today with hopes of basal once daily in the morning starting tomorrow. 09/01: * Pt is a 32 year old female with a history of DM2 admitted in the setting of weakness, N/V, and weight loss. Found to have new PE and ovarian mass. Possible euglycemic DKA. Initial labs: BSG-168, AG-17, Bicarb-19. Insulin drip initiated per DKA protocol at 0.05 unit/kg/hr given BSG within goal. * Dextrose-containing IVF started with insulin drip to keep BSG within goal range. Diet ordered. * Continue insulin drip per DKA protocol until AG <12, bicarb >/=15. Consider Lantus 15 units SQ X 1 when criteria are met for transition to SQ and overlap with drip X 2 hours if drip not paused per protocol. Novolog ACHS with a carb ratio of 10gm/unit while drip running and add correction of 25-30mg/dL/unit once drip is off. PLAN FOR INPATIENT GLYCEMIC CONTROL: * Hold outpatient oral diabetes medications * Basal insulin * Lantus 20 units SC QAM * Bolus insulin * NovoLog per scale ACHS or Q6hrs while NPO * Goal Range: Low 110 mg/dL - High 140 mg/dL * Correction Factor: 20 mg/dL/unit * Nutritional / Prandial insulin per carb ratio of 1 unit per 6 grams CHO consumed
--- NOTE | 2023-09-04 10:23 | Discharge Summary ---
Discharge Summary Date of Service September 04, 2023 Notes For Next Care Provider Please ensure followup with gynecology/oncology as soon as possible for concerning ovarian mass Repeat CBC at follow up visit to ensure Hgb stability- hgb stable at 7.8 on discharge Please ensure compliance with Xarelto and follow up on PE Medication Changes From Visit Started on: -Iron supplements -Eliquis Admission HPI Per Admitting Provider 32-year-old female with past med significant for type 2 diabetes, polycystic ovaries, morbid obesity comes because of ongoing nausea and vomiting, weakness and fatigue for last 2 months. She vomits little bit about every other day .She was getting progressively short of breath. Fatigue and weak. Poor appetite. Last about 40 pounds in last 2 months. Denies any fevers. On and off palpitations. No chest pain. No headache. Currently denies any runny nose or sore throat. Has cough for last 4 months. On and off bilateral flank pains. Denies hematuria or blood in the stools. Denies any heavy menses. She also feeling weak in the legs. Not able to ambulate much. Past medical history. As mentioned above Past surgical history. None Social history. Currently living with her sister and family. No smoking. No alcohol use. No drug use. Family history. Mother had hypertension. COPD, obesity. Father had glaucoma, hypertension. Sister has obesity, hypertension. Maternal grandfather had polycythemia. Paternal grandfather had cancer. Paternal grandmother had lung cancer. Admission Exam Per Admitting Provider General-Not in distress. Head- atraumatic Eyes- PERRL. ENT- oropharynx clear Neck- supple, no JVD. Lungs- clear to auscultation no wheezing or crackles. Heart- regular rhythm; no murmur, no gallop. Abdomen- normal bowel sounds, soft, nontender, no distension. Extremities- no pretibial edema, no erythema seen. Neuro- alert, oriented x 3; PERRL,; no facial palsy; no dysarthria; obeys commands. Skin- warm & dry Principal Dx & Hospital Course #1 = Principal Diagnosis (1) Weakness: (2) Pulmonary embolism: (3) Upper respiratory infection, viral: (4) Anemia: (5) Ovarian cystic mass: (6) Nausea & vomiting: Plan 32-year-old female admitted with PE in the setting of possible ovarian malignancy, anemia requiring transfusion, entero/rhinovirus infection and possible bacteremia. PE CT chest with noted pulmonary embolus within segmental and subsegmental branches of the left lower lobe pulmonary artery. Doppler of lower extremity showed no evidence of DVT IV heparin transitioned to PO Eliquis on 09/02. Discharged with Xarelto starter pack, as this was what was covered by her insurance. Pulmonology consult placed on 09/02-recommending continued anticoagulation as long as pt has cancer. Please renew Xarelto as needed. Denied any active signs of bleeding such as hematuria, hemoptysis, or hematochezia on day of discharge. PE likely provoked in the setting of possible ovarian malignancy/mass (see below) Large ovarian mass History of polycystic ovaries CT abdominal /pelvis:There is a complex probably cystic mass with eccentric solid components filling and distending the abdomen and pelvis, measuring 20.2 x 28 x 28.4 cm (volume 8.42 L) Suspicious for an ovarian neoplasm, CA 125 elevated. INSPECTOR FIREARMS consulted -recommending further evaluation/biopsy of mass at tertiary care center if surgical care needed due to large size of mass -Tumor markers for AFP, CA 199, and CA 125 ordered -Ca 125 elevated Please urgently refer to elevator operator freight/onc for further biopsy/evaluation. Close INSPECTOR FIREARMS follow up after discharge Anemia Hemoglobin 7.8 on admission Required transfusion of 1U of pRBC on 09/01 for hgb of 6.6 Vitamin B12, folate levels are normal Iron level 22, TIBC 197, transferrin 11 On iron supplements- dsicharged with such Please repeat CBC at follow up visit to ensure Hgb stability- hgb stable at 7.8 on discharge Entero/rhinovirus Infection Biofire positive for Entero/rhino infection Supportive care Resolved on discharge Bacteremia- contaminant Pt with chronic leukocytosis One Blood culture positive for gram-positive cocci in clusters (Staph PCR detected) Grew coag negative staph Repeat blood Cx with no growth to date Urine culture with no significant growth Procalcitonin negative Was on IV Vanc and Zosyn, discontinued per ID recommendations as likely contaminant ID consult on 09/03 -d/c Vanc and Zosyn as blood cx likely contaminated -biopsy ovarian mass -follow repeat blood cx Repeat blood cultures with no growth to date in both Tachycardia EKG on 09/02 with sinus tachycardia Echo showed an ejection fraction between 55 to 60%. Normal left ventricular systolic function Likely Reflex/physiologic in the setting of PE, anemia Consider beta gregg, cards consult for persistence DMII Hyperglycemia Most recent hemoglobin A1c 6.6 Basal/bolus insulin while hospitalized Discharged on home regimen Electrolyte imbalance Repleted as needed Hypertension Continue losartan Mood Continue lexapro Discharge Exam General: Alert, oriented. Psych: Appropriate mood and affect Neuro: No gross deficits HEENT: NC/AT CV: RRR, Normal s1, s2. No murmurs appreciated Resp: Breath sounds decreased bilaterally, no increased effort of breathing. Abdomen: nontender Extremities: edema in lower extremities bilaterally. Updated Medication List Medication Instructions Recorded Confirmed Type empagliflozin 25 mg tablet 25 mg PO DAILY 05/28/20 08/31/23 History (Jardiance) losartan 25 mg tablet 25 mg PO DAILY 05/28/20 08/31/23 History metformin 1,000 mg tablet 1,000 mg PO BID 05/28/20 08/31/23 History escitalopram oxalate 10 mg tablet 10 mg PO QAM 08/31/23 08/31/23 History ferrous sulfate 325 mg (65 mg 325 mg PO BIDM #60 tabs 09/04/23 Rx iron) tablet,delayed release rivaroxaban 15 mg (42)-20 mg (9) See Rx Instructions PO .COMPLEX 09/04/23 Rx tablets in a starter pack (Xarelto #51 ea DVT-PE Treatment 30-Day Starter) Hospital Stay Data Consultations 08/31/23 21:32 ED Decision to Admit Stat 09/01/23 08:00 Consult Obstetrics Routine 09/02/23 01:38 Consult Infectious Diseases Routine 09/03/23 09:22 Consult Pulmonology Routine Diagnostic Imagining Performed 08/31/23 19:03 CT abd pelvis IV con only Stat 08/31/23 22:07 CT angio chest PE protocol Stat 09/01/23 02:12 US venous doppler LE BI Routine Abdomen/Pelvis CT 08/31/23 19:03 Exam(s): CT ABDOMEN + PELVIS With Contrast IV Amt: 90 ml optiray 320 EXAM: CT Abdomen and Pelvis With Intravenous Contrast CLINICAL HISTORY: n/v, weight loss, abd distention. TECHNIQUE: Axial computed tomography images of the abdomen and pelvis with intravenous contrast. CTDI is 28.22 mGy and DLP is 1419.52 mGy-cm. Automated exposure control was utilized for the study. A dose lowering technique was utilized adhering to the principles of ALARA. CONTRAST: Patient received 90 ml optiray 320 of IV contrast COMPARISON: No relevant prior studies available. FINDINGS: Lung bases: Unremarkable. No mass. No consolidation. ABDOMEN: Liver: Unremarkable. No mass. Gallbladder and bile ducts: Unremarkable. No calcified stones. No ductal dilation. Pancreas: Unremarkable. No mass. No ductal dilation. Spleen: Unremarkable. No splenomegaly. Adrenals: Unremarkable. No mass. Kidneys and ureters: Unremarkable. No solid mass. No hydronephrosis. Stomach and bowel: No evidence for bowel obstruction. There is marked displacement of the bowel from the abnormal space-occupying mass. No asymmetric bowel mucosal abnormality identified. PELVIS: Appendix: The appendix is not clearly delineated. No secondary findings identified. Bladder: Unremarkable. No mass. Reproductive: Uterus is normal in size and appears to be distinct from the pelvic mass. There is tissue in the right lateral pelvis which may represent the right adnexa/ovary. The tissue abuts the mass but appears to be somewhat distinct from the mass. ABDOMEN and PELVIS: Intraperitoneal space: There is a complex probably cystic mass with eccentric solid components filling and distending the abdomen and pelvis, measuring 20.2 x 28 x 28.4 cm (volume 8.42 L). Trace free fluid in the pelvis without loculation. No free air. Bones/joints: No acute fracture. No dislocation. Soft tissues: Unremarkable. Vasculature: Unremarkable. No abdominal aortic aneurysm. Lymph nodes: Unremarkable. No enlarged lymph nodes. IMPRESSION: There is a complex probably cystic mass with eccentric solid components filling and distending the abdomen and pelvis, measuring 20.2 x 28 x 28.4 cm (volume 8.42 L). Trace surrounding free fluid in the pelvis. 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 Electronically signed by: Amadeo Cheema MD 08/31/23 20:47 PM Chest CTA 08/31/23 22:07 CT ANGIOGRAM OF THE CHEST CLINICAL HISTORY: Ovarian mass. Possible left lower lobe pulmonary embolus. COMPARISON STUDY: Abdominal CT performed the same date 08/31/2023. TECHNIQUE: Following the IV administration of 117 cc of Optiray 320, CT angiogram of the chest was performed from the upper abdomen to the thoracic inlet utilizing the pulmonary embolus protocol. Images are reviewed in the axial, sagittal, and coronal planes. 3-D MIPS images are created and assessed. IV contrast was administered without complication. A dose lowering technique was utilized adhering to the principles of ALARA. CT DOSE: 849.54 mGy.cm FINDINGS: Thyroid: Imaged portions of the thyroid gland are normal in size and attenuation. Thoracic aorta: The thoracic aorta is normal in caliber and demonstrates bovine variant arch anatomy. No dissection is seen. Pulmonary vasculature: The pulmonary trunk is normal in caliber. There are segmental and subsegmental pulmonary embolus within branches of the left lower lobe pulmonary artery. The remaining pulmonary vessels appear clear. Heart: The heart is normal in size and without pericardial effusion. Lungs and pleural spaces: Evaluation of the lung parenchyma is degraded by motion artifact. There is trace right pleural effusion and dependent atelectasis. No airspace consolidation is seen typical for pneumonia. The trachea and central airways are clear. Mediastinum: There is no mediastinal lymphadenopathy. Denae: Clear. Axillae: There is no axillary lymphadenopathy. Upper abdomen: A large solid and cystic mass lesion is partially visualized in the upper abdomen below the diaphragm. Excreted IV contrast is seen within the renal collecting systems. Skeletal structures: No lytic or blastic bony lesions are seen. IMPRESSION: 1. The CT angiogram confirms pulmonary embolus within segmental and subsegmental branches of the left lower lobe pulmonary artery. 2. Trace right pleural effusion. 3. There is no airspace consolidation typical for pneumonia. 4. There is no evidence of intrathoracic metastatic disease. 5. A large solid and cystic ovarian mass lesion is partially visualized in the upper abdomen. An ovarian neoplasm remains the diagnosis of exclusion. 6. Additional findings as above. ACT 112: Negative or not required by law. Electronically signed by: Damien Rolle M.D. 08/31/2023 10:45 PM Venous Doppler Study 09/01/23 02:12 BILATERAL LOWER EXTREMITY VENOUS DOPPLER HISTORY: Acute pain and swelling of the lower legs has PE. dvt? COMPARISON STUDY: None. FINDINGS: Slow venous flow is noted throughout the left popliteal vein. There is normal compressibility, flow, and augmentation within the bilateral lower extremity deep venous systems. IMPRESSION: No DVT within the right or left lower extremity. ACT 112: Negative or not required by law. Electronically signed by: Umer Mosher M.D. 09/01/2023 7:19 AM Discharge Instructions Given to Patient (Per Discharging Provider) Ms. Pierson, You were admitted and we noticed that your blood counts were very low. We transfused you blood at one point and started you on iron tablets to help. Your hemoglobin has remained stable and we are discharging you home as requested. While stable, your hemoglobin is still on the lower end so it will require close follow up with your primary care provider in a few days. They will order bloodwork to ensure that it remains stable. Please keep that appointment as scheduled. Should you get dizzy or short of breath before that time, please do not hesitate to come back to the emergency room. We are discharging you with iron pills to help with that as well. You were seen by the photograph retoucher since you had blood clots in your lungs that required being put on a blood thinner. He advised that you will need to remain on the blood thinner as long as you have this mass even though you are anemic. Please take it as prescribed. Your insurance covers the medication Xarelto (rivaroxaban) so we are discharging you on that blood thinner. Please take it as prescribed. We noted that you had a concerning ovarian mass. You were seen by the bead trimmer and they are recommending follow up for that with a bead trimmer who specializes in oncology (elevator operator freight-onc). The bead trimmer office will call you to set up an appointment with them after discharge and your primary care provider can also refer you to a elevator operator freight-onc for further evaluation. This should be done as soon as possible and you can discuss this further with your primary care provid er at your upcoming appointment in a few days. It was a pleasure taking care of you while you were here. Total Time Total Time Spent Total Time Spent (In Minutes): > 30 minutes
[2023-09-04] MEDS: APIXABAN 5 MG TABLET PO SCH (10:27)
[2023-09-04] MEDS ORDERED: SODIUM CHLORIDE 0.9% 1,000 ML IV SCH (11:00)
[2023-09-09] MEDS ORDERED: APIXABAN 5 MG TABLET PO SCH (09:00)
== END 2023-09-04 20:29 | disposition home or self-care (01) | DRG 175 ==
LOC: ED 18:38 → SUATTDRO 22:26 → EDINP 22:26 → 2S 09-01 00:12